=== PATIENT | male | born 1965 | race Caucasian/White ===

== ENCOUNTER 2021-05-01 16:13 | Inpatient (IN) ==
[2021-05-01] MEDS ORDERED: SODIUM CHLORIDE 0.9% 1000ML 1,000 ML IV ONE (16:41)
[2021-05-01] MEDS ORDERED: fentaNYL citrate 100 MCG/2 ML VIAL IV STA (16:42)
--- NOTE | 2021-05-01 16:43 | Emergency Department Note ---
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 Describes a ripping sensation in the middle of his abdomen and some nausea. States he feels quite sweaty. Denies any chest pain or shortness of breath. Denies loss of consciousness or trauma. Patient states he last took his blood thinner this morning. Denies a history of similar pain like this but does report distantly has had kidney stones. EMS provided the patient with some Zofran and fentanyl prior to arrival which has moderated the pain mildly. Patient denies a history of abdominal surgery. Reports in the past has had significant chronic diarrhea of unclear etiology prior work-up outside of [place] where he is from. Denies any bowel movements today. No history of bowel obstructions reported. REVIEW OF SYSTEMS: A total of 10 review of systems was obtained and negative except as stated above in the HPI. PAST MEDICAL HISTORY: As noted above MEDICATIONS: Reviewed home medications with the patient include Xarelto SOCIAL HISTORY: Non-smoker lives outside of [place], states he is single PHYSICAL EXAM: GENERAL: alert and oriented appears significantly uncomfortable lying on the stretcher with his eyes closed grimacing Head: normocephalic and atraumatic EYES: No injection, discharge or icterus. NECK: Trachea midline. Supple. ENT: Mucous membranes pink and moist LUNGS: Airway patent. No retractions. Breath sounds clear with good air entry bilaterally. HEART: Regular rate and rhythm. No chest wall tenderness ABDOMEN: Soft not peritoneal but with mid abdominal pain and tenderness. No flank tenderness appreciated. SKIN: Acyanotic, warm, diaphoretic EXTREMITIES: Without swelling, tenderness or deformity NEUROLOGICAL: No focal deficits. No aphasia. No facial droop or slurred speech. EK bpm normal sinus rhythm. No PVC or PAC. Some inferior ST and T wave changes but no clear acute ST segment elevation noted. No priors available for comparison. CONTINUOUS CARDIAC MONITORING: was ordered and showed a heart rate of 80s to 100s bpm in normal sinus rhythm to sinus tachycardia EKG #2: 104 bpm sinus tachycardia. No PVC or PAC. Some baseline artifact is noted. No acute ST segment elevation noted with persistent inferior T wave inversions Patient's laboratory studies and imaging reviewed. Differential includes Appendicitis, testicular torsion, infections, diverticulitis, UTI, obstruction, mesenteric ischemia, cardiac pathology, aortic pathology, inflammatory bowel disease, renal colic, PUD, pancreatitis, biliary pathology, hernia, volvulus, constipation, as well as other pathologies. IMPRESSION/MEDICAL DECISION MAKING: Patient presents with severe abdominal pain from out of the area on Xarelto. Describes a ripping sensation in the abdomen. Denies shortness of breath or chest pain. EKG question some inferior T wave and ST changes but no clear STEMI. Immediately sent for CT of the abdomen pelvis. Bedside ultrasound of the abdomen was attempted by myself at bedside but overlying bowel gas and habitus prohibited any conclusive aortic visualization. Again immediately taken for a CT of the abdomen pelvis as well as the chest. CT reports per radiology show evidence of no acute aortic pathology. They do find evidence of a nonspecific enteritis in the right lower quadrant with some mesenteric lymph nodes enlarged and a small bowel obstruction. No pneumatosis is noted per the scan. Blood work shows some slight white count of 11.3. Patient in significant discomfort. Given additional pain medicine here. Discussed with him placing an NG tube for help with decompression. Given some IV fluid here recommended further evaluation here at the hospital for care of sm all bowel obstruction. Given the work-up believe hypertension likely secondary to his significant abdominal discomfort. Patient was unable to tolerate initial NG tube placement here. Medicated with Zofran in addition to morphine (patient later states is multiple orthopedic procedures in the past and is quite tolerant to narcotics requesting Dilaudid) and later given Dilaudid. Patient was later able to have an NG tube placed with over a liter of output. Repeat EKG obtained given his continued discomfort and diaphoresis without acute STEMI and again I doubt this is cardiac and his significant discomfort is a symptom of his SBO. Patient was made aware of some reactive lymph nodes and to follow-up with his outpatient GI doctor for further evaluation of the inflammatory and obstructive state after this admission resolves. DIAGNOSIS: Abdominal pain, small bowel obstruction, nausea, hypertension DISPOSITION: Hospitalist will evaluate for further care and the patient was in agreement this plan Past Med/Surg History Social History Smoking Status: Never smoker Feels Safe at Home: Yes Allergies Allergies Allergy/AdvReac Type Severity Reaction Status Date / Time ciprofloxacin [From Cipro] Allergy Severe Anaphylaxis Unverified 05/01/21 18:35 Home Meds Home Medications Medication Instructions Recorded Confirmed acetaminophen [Tylenol Extra 1,000 mg PO Q6H PRN 05/01/21 05/01/21 Strength] atenolol 25 mg PO BID 05/01/21 05/01/21 esomeprazole magnesium [Nexium 20 mg PO QAM 05/01/21 05/01/21 24HR] rivaroxaban [Xarelto] 20 mg PO QAM 05/01/21 05/01/21 Results & Data (ED) Vital Signs Vital Signs - 24 hr 05/01/21 16:25 05/01/21 16:36 05/01/21 17:11 Temperature 36.5 C Temperature Source Oral Pulse Rate 85 83 85 Pulse Rate from SpO2 Sensor 79 84 Pulse Rhythm Regular Pulse Strength Normal Respiratory Rate 12 17 13 Respiratory Effort / Characteristics Non-Labored Spontaneous Respiratory Depth Normal Respiratory Pattern Regular Blood Pressure 168/119 H 168/124 H 183/121 H Blood Pressure [Right Arm] Blood Pressure Mean 135 138 141 Blood Pressure Mean [Right Arm] Blood Pressure Position Sitting Blood Pressure Position [Right Arm] Pulse Oximetry 94 93 95 Oxygen Delivery Method Room Air Sepsis Recent Fever Within 48 Hours No Sepsis New/Unexplained Change in Mental Status No Sepsis Action Taken by Nursing No Action Required 05/01/21 18:23 05/01/21 19:00 05/01/21 19:06 Temperature Temperature Source Pulse Rate 94 H 96 H 105 H Pulse Rate from SpO2 Sensor 94 H 96 H 105 H Pulse Rhythm Pulse Strength Respiratory Rate 19 20 18 Respiratory Effort / Characteristics Respiratory Depth Respiratory Pattern Blood Pressure 169/128 H 167/123 H Blood Pressure [Right Arm] Blood Pressure Mean 141 137 Blood Pressure Mean [Right Arm] Blood Pressure Position Blood Pressure Position [Right Arm] Pulse Oximetry 97 91 94 Oxygen Delivery Method Sepsis Recent Fever Within 48 Hours Sepsis New/Unexplained Change in Mental Status Sepsis Action Taken by Nursing 05/01/21 19:07 05/01/21 19:35 05/01/21 20:00 Temperature Temperature Source Pulse Rate 103 H Pulse Rate from SpO2 Sensor 104 H Pulse Rhythm Pulse Strength Respiratory Rate 22 16 Respiratory Effort / Characteristics Non-Labored Respiratory Depth Normal Respiratory Pattern Blood Pressure Blood Pressure [Right Arm] 167/123 H Blood Pressure Mean Blood Pressure Mean [Right Arm] 137 Blood Pressure Position Blood Pressure Position [Right Arm] Lying Pulse Oximetry 95 92 Oxygen Delivery Method Room Air Room Air Sepsis Recent Fever Within 48 Hours Sepsis New/Unexplained Change in Mental Status Sepsis Action Taken by Nursing 05/01/21 21:00 05/01/21 21:21 Temperature Temperature Source Pulse Rate 104 H 110 H Pulse Rate from SpO2 Sensor 106 H 111 H Pulse Rhythm Pulse Strength Respiratory Rate 23 14 Respiratory Effort / Characteristics Non-Labored Accessory Muscle Use Respiratory Depth Normal Respiratory Pattern Blood Pressure 151/112 H Blood Pressure [Right Arm] 151/112 H Blood Pressure Mean 125 Blood Pressure Mean [Right Arm] 125 Blood Pressure Position Blood Pressure Position [Right Arm] Lying Pulse Oximetry 92 94 Oxygen Delivery Method Room Air Sepsis Recent Fever Within 48 Hours Sepsis New/Unexplained Change in Mental Status Sepsis Action Taken by Nursing Laboratory Data Result diagrams: 05/01/21 16:58 05/01/21 17:37 Lab Results 05/01/21 05/01/21 05/01/21 Range/Units 16:39 16:39 16:58 WBC 11.33 H (4.8-10.8) K/uL RBC 5.92 (4.7-6.1) M/uL Hgb 18.0 (14.0-18.0) g/dL Hct 51.7 (42-52) % MCV 87.3 (80-100) fL MCH 30.4 (25-34) pg MCHC 34.8 (32-36) g/dL RDW Std Deviation 45.1 (36.4-46.3) fL RDW Coeff of Anat 14.1 (11.5-14.5) % Plt Count 188 (130-400) K/uL MPV 12.0 H (7.4-10.4) fL Immature Gran % (Auto) 0.7 % Neut % (Auto) 88.6 % Lymph % (Auto) 5.2 % Douglas % (Auto) 4.9 % Eos % (Auto) 0.4 % Baso % (Auto) 0.2 % Neut # (Auto) 10.04 H (1.4-6.5) K/uL Lymph # (Auto) 0.59 L (1.2-3.4) K/uL Douglas # (Auto) 0.56 (0.11-0.59) K/uL Eos # (Auto) 0.04 (0-0.5) K/uL Baso # (Auto) 0.02 (0-0.2) K/uL Immature Gran # (Auto) 0.08 H (0.00-0.02) K/uL PT 11.6 (9.0-12.0) Seconds INR 1.2 H (0.9-1.1) Sodium Cancelled Potassium Cancelled Chloride Cancelled Carbon Dioxide Cancelled Anion Gap Cancelled BUN Cancelled Creatinine Cancelled Est Cr Clr Drug Dosing Cancelled Est GFR ( Amer) Cancelled Est GFR (Non-Af Amer) Cancelled BUN/Creatinine Ratio Cancelled Glucose Cancelled Calcium Cancelled Total Bilirubin Cancelled AST Cancelled ALT Cancelled Alkaline Phosphatase Cancelled Troponin I Cancelled Total Protein Cancelled Albumin Cancelled Globulin Cancelled Albumin/Globulin Ratio Cancelled Lipase Cancelled COVID-19 Eval Order SARS-CoV-2 (PCR) (Negative) 05/01/21 05/01/21 05/01/21 Range/Units 17:37 19:08 19:08 WBC (4.8-10.8) K/uL RBC (4.7-6.1) M/uL Hgb (14.0-18.0) g/dL Hct (42-52) % MCV (80-100) fL MCH (25-34) pg MCHC (32-36) g/dL RDW Std Deviation (36.4-46.3) fL RDW Coeff of Anat (11.5-14.5) % Plt Count (130-400) K/uL MPV (7.4-10.4) fL Immature Gran % (Auto) % Neut % (Auto) % Lymph % (Auto) % Douglas % (Auto) % Eos % (Auto) % Baso % (Auto) % Neut # (Auto) (1.4-6.5) K/uL Lymph # (Auto) (1.2-3.4) K/uL Douglas # (Auto) (0.11-0.59) K/uL Eos # (Auto) (0-0.5) K/uL Baso # (Auto) (0-0.2) K/uL Immature Gran # (Auto) (0.00-0.02) K/uL PT (9.0-12.0) Seconds INR (0.9-1.1) Sodium 134 L Potassium 4.5 Chloride 102 Carbon Dioxide 28 Anion Gap 4.0 BUN 13 Creatinine 0.94 Est Cr Clr Drug Dosing 108.7 Est GFR ( Amer) 103.9 Est GFR (Non-Af Amer) 89.6 BUN/Creatinine Ratio 13.9 Glucose 166 H Calcium 8.8 Total Bilirubin 0.7 AST 36 ALT 43 Alkaline Phosphatase 89 Troponin I < 0.015 Total Protein 7.7 Albumin 3.6 Globulin 4.1 H Albumin/Globulin Ratio 0.9 Lipase 147 COVID-19 Eval Order Covid19 at [facility] SARS-CoV-2 (PCR) NEGATIVE (Negative) Administered Medications Discontinued Medications Fentanyl Citrate (Fentanyl Citrate 100 Mcg/2 Ml Vial) 100 mcg IV NOW STA Stop: 05/01/21 16:43 Last Admin: 05/01/21 17:09 Dose: 100 mcg Documented by: [id number] Hydromorphone HCl (Hydromorphone Inj 1 Mg/Ml Syringe) 1 mg IV NOW STA Stop: 05/01/21 18:29 Last Admin: 05/01/21 18:42 Dose: 1 mg Documented by: [id number] Hydromorphone HCl (Hydromorphone Inj 1 Mg/Ml Syringe) 1 mg IV NOW STA Stop: 05/01/21 19:14 Last Admin: 05/01/21 19:23 Dose: 1 mg Documented by: [id number] Sodium Chloride (Nss 1000ml) 1,000 mls @ 999 mls/hr IV .Q1H1M ONE Stop: 05/01/21 17:41 Last Infusion: 05/01/21 19:04 Dose: 0 mls/hr Documented by: [id number] Admin: 05/01/21 17:10 Dose: 999 mls/hr Documented by: [id number] Ioversol (Optiray 320 125ml) 120 ml IV ONCE ONE Stop: 05/01/21 16:45 Last Admin: 05/01/21 16:45 Dose: 120 ml Documented by: [id number] Morphine Sulfate (Morphine Sulfate 4 Mg/Ml 1 Ml Carp\Vial) 4 mg IV NOW STA Stop: 05/01/21 17:52 Last Admin: 05/01/21 18:05 Dose: 4 mg Documented by: [id number] Morphine Sulfate (Morphine Sulfate 4 Mg/Ml 1 Ml Carp\Vial) 4 mg IV NOW STA Stop: 05/01/21 18:23 Last Admin: 05/01/21 18:26 Dose: 4 mg Documented by: [id number] Ondansetron HCl (Ondansetron Inj 2 Mg/Ml 2 Ml Vial) 4 mg IV NOW STA Stop: 05/01/21 17:53 Last Admin: 05/01/21 18:06 Dose: 4 mg Documented by: [id number] Imaging Data Radiologist's Impression: Abdomen/Pelvis CTA 05/01/21 16:40 CT ANGIOGRAM OF THE CHEST COMBO; CT ANGIOGRAM OF THE ABDOMEN AND PELVIS CLINICAL HISTORY: Hypertension. Generalized abdominal pain. COMPARISON STUDY: No priors. TECHNIQUE: Unenhanced CT of the chest is obtained. Following the IV admi nistration of 120 cc of Optiray 320, CT angiogram of the chest, abdomen, and pelvis was performed from the thoracic inlet to the proximal femora. Images are reviewed in the axial, sagittal, and coronal planes. 3-D MIPS images are created and assessed. IV contrast was administered without complication. A dose lowering technique was utilized adhering to the principles of ALARA. CT DOSE: 2936.46 mGy.cm FINDINGS: CHEST: Thyroid: Imaged portions of the thyroid gland are normal in size and attenua tion. Low-attenuation thyroid nodules measure up to 12 mm. Thoracic aorta: No intramural hematoma is identified on the unenhanced series. The thoracic aorta is normal in course and caliber. The aortic arch demonstrates standard 3-vessel anatomy. No dissection is seen. The arch vessels are widely patent. Pulmonary vasculature: The pulmonary trunk is dilated measuring 3.7 cm in diameter. This suggests pulmonary artery hypertension. There are no filling defects identified in the central pulmonary vessels to indicate pulmonary embolus. Note that this examination was not protocoled for evaluation of the pulmonary arteries. Heart: The heart is mildly enlarged and without pericardial effusion. The coronary arteries are densely calcified. Lungs and pleural spaces: There is no airspace consolidation or pleural effusion. Dependent atelectasis is noted at the lung bases. The trachea and central airways are clear. There is a 2 mm pulmonary nodule is incidentally noted in the lingula as seen on image #130. Mediastinum: There is no mediastinal lymphadenopathy. Lori: Clear. Axillae: There is no axillary lymphadenopathy. Bony thorax: No destructive bony lesions are identified. A right shoulder arthroplasty is in place. Degenerative change is seen throughout the thoracic spine. ABDOMEN AND PELVIS: Liver: The contrast-enhanced liver is mildly enlarged, measuring 23.3 cm in length. The liver demonstrates diffusely diminished attenuation consistent with hepatic steatosis. There is no intrahepatic biliary ductal dilatation. The main portal veins appear patent. Gallbladder: Surgically absent noting clips in the gallbladder fossa. Spleen: The spleen is enlarged measuring 16.2 cm in length. The spleen is otherwise normal in appearance noting heterogeneous arterial phase enhancement. Pancreas: Unremarkable. Adrenal glands: Unremarkable. Kidneys: The contrast enhanced kidneys are normal in size and without hydronephrosis. The kidneys enhance symmetrically. A 1.6 cm cyst is noted on the right. Abdominal aorta and iliac arteries: The abdominal aorta is normal in course and caliber noting minimal atherosclerotic plaque. No dissection is seen. The abdominal aorta and iliac arteries are widely patent bilaterally. Major branches of the abdominal aorta: The celiac trunk, superior mesenteric, and inferior mesenteric arteries are widely patent. There is a replaced hepatic artery which arises from the superior mesenteric artery. The splenic vein is patent. There are 2 renal arteries seen bilaterally. These are widely patent. Stomach and bowel: There is mild colonic diverticulosis without CT evidence of acute diverticulitis. Duodenal diverticula are incidentally noted. There is a thick-walled and hyperemic loop of distal ileum in the right lower quadrant seen on image #304. The small bowel loops proximal to this loop are distended and fluid-filled, measuring up to 3.1 cm diameter. This is consistent with a small bowel obstruction. The distal small bowel and colon are decompressed. The transition point is seen on image #314. Interloop fluid is noted. There is no pneumatosis intestinalis or portal venous gas. The appendix is well-visualized and normal. Peritoneum: There is trace pelvic ascites. No intraperitoneal free air is identified. Lymphadenopathy: There are mildly enlarged and hyperemic mesenteric lymph nodes in the right lower quadrant. The largest is seen on image #308 and measures 2.2 x 2.0 cm. Pelvic viscera: The bladder, prostate, and seminal vesicles are normal as imaged. Skeletal structures: There are bilateral pars defects at L5. Mild to moderate lumbosacral spondylosis is observed. A large hemangioma seen in the body of L5. No destructive bony lesions are seen. IMPRESSION: 1. Unremarkable CT angiogram of the thoracic aorta. 2. There is no airspace consolidation or pleural effusion. 3. Mild cardiomegaly with advanced coronary artery calcification. 4. Unremarkable CT angiogram of the abdominal aorta and its major branches. 5. There is a focally thick walled and hyperemic loop of distal ileum the right lower quadrant. This likely represents a nonspecific enteritis. A stricture or mass lesion are differential considerations. 6. This thick-walled loop causes upstream small bowel obstruction. 7. Interloop fluid is noted. No pneumatosis intestinalis, portal venous gas, or intraperitoneal free air is identified. 8. There are enlarged and hyperemic mesenteric lymph nodes in the right lower quadrant. These may be reactive but are larger than expected. A 2-3 month follow-up abdominal CT is recommended for reassessment. 9. Hepatomegaly and hepatic steatosis. 10. Splenomegaly. 11. Colonic diverticulosis without CT evidence of acute diverticulitis. 12. Additional findings as above. ACT 112: Positive. There are findings on this exam that require communication between the performing entity and the patient following Patient Test Result Information Act ([place] Act 112) guidelines. Electronically signed by: Roberto Mata M.D. 05/01/2021 5:15 PM Chest CTA 05/01/21 16:40 CT ANGIOGRAM OF THE CHEST COMBO; CT ANGIOGRAM OF THE ABDOMEN AND PELVIS CLINICAL HISTORY: Hypertension. Generalized abdominal pain. COMPARISON STUDY: No priors. TECHNIQUE: Unenhanced CT of the chest is obtained. Following the IV administration of 120 cc of Optiray 320, CT angiogram of the chest, abdomen, and pelvis was performed from the thoracic inlet to the proximal femora. Images are reviewed in the axial, sagittal, and coronal planes. 3-D MIPS images are created and assessed. IV contrast was administered without complication. A dose lowering technique was utilized adhering to the principles of ALARA. CT DOSE: 2936.46 mGy.cm FINDINGS: CHEST: Thyroid: Imaged portions of the thyroid gland are normal in size and attenuation. Low-attenuation thyroid nodules measure up to 12 mm. Thoracic aorta: No intramural hematoma is identified on the unenhanced series. The thoracic aorta is normal in course and caliber. The aortic arch demonstrates standard 3-vessel anatomy. No dissection is seen. The arch vessels are widely patent. Pulmonary vasculature: The pulmonary trunk is dilated measuring 3.7 cm in diameter. This suggests pulmonary artery hypertension. There are no filling defects identified in the central pulmonary vessels to indicate pulmonary embolus. Note that this examination was not protocoled for evaluation of the pulmonary arteries. Heart: The heart is mildly enlarged and without pericardial effusion. The coronary arteries are densely calcified. Lungs and pleural spaces: There is no airspace consolidation or pleural effusion. Dependent atelectasis is noted at the lung bases. The trachea and central airways are clear. There is a 2 mm pulmonary nodule is incidentally noted in the lingula as seen on image #130. Mediastinum: There is no mediastinal lymphadenopathy. Lori: Clear. Axillae: There is no axillary lymphadenopathy. Bony thorax: No destructive bony lesions are identified. A right shoulder arthroplasty is in place. Degenerative change is seen throughout the thoracic spine. ABDOMEN AND PELVIS: Liver: The contrast-enhanced liver is mildly enlarged, measuring 23.3 cm in length. The liver demonstrates diffusely diminished attenuation consistent with hepatic steatosis. There is no intrahepatic biliary ductal dilatation. The main portal veins appear patent. Gallbladder: Surgically absent noting clips in the gallbladder fossa. Spleen: The spleen is enlarged measuring 16.2 cm in length. The spleen is otherwise normal in appearance noting heterogeneous arterial phase enhancement. Pancreas: Unremarkable. Adrenal glands: Unremarkable. Kidneys: The contrast enhanced kidneys are normal in size and without hydronephrosis. The kidneys enhance symmetrically. A 1.6 cm cyst is noted on the right. Abdominal aorta and iliac arteries: The abdominal aorta is normal in course and caliber noting minimal atherosclerotic plaque. No dissection is seen. The abdominal aorta and iliac arteries are widely patent bilaterally. Major branches of the abdominal aorta: The celiac trunk, superior mesenteric, a nd inferior mesenteric arteries are widely patent. There is a replaced hepatic artery which arises from the superior mesenteric artery. The splenic vein is patent. There are 2 renal arteries seen bilaterally. These are widely patent. Stomach and bowel: There is mild colonic diverticulosis without CT evidence of acute diverticulitis. Duodenal diverticula are incidentally noted. There is a thick-walled and hyperemic loop of distal ileum in the right lower quadrant seen on image #304. The small bowel loops proximal to this loop are distended and fluid-filled, measuring up to 3.1 cm diameter. This is consistent with a small bowel obstruction. The distal small bowel and colon are decompressed. The transition point is seen on image #314. Interloop fluid is noted. There is no pneumatosis intestinalis or portal venous gas. The appendix is well-visualized and normal. Peritoneum: There is trace pelvic ascites. No intraperitoneal free air is id entified. Lymphadenopathy: There are mildly enlarged and hyperemic mesenteric lymph nodes in the right lower quadrant. The largest is seen on image #308 and measures 2.2 x 2.0 cm. Pelvic viscera: The bladder, prostate, and seminal vesicles are normal as imaged. Skeletal structures: There are bilateral pars defects at L5. Mild to moderate lumbosacral spondylosis is observed. A large hemangioma seen in the body of L5. No destructive bony lesions are seen. IMPRESSION: 1. Unremarkable CT angiogram of the thoracic aorta. 2. There is no airspace consolidation or pleural effusion. 3. Mild cardiomegaly with advanced coronary artery calcification. 4. Unremarkable CT angiogram of the abdominal aorta and its major branches. 5. There is a focally thick walled and hyperemic loop of distal ileum the right lower quadrant. This likely represents a nonspecific enteritis. A stricture or mass lesion are differential considerations. 6. This thick-walled loop causes upstream small bowel obstruction. 7. Interloop fluid is noted. No pneumatosis intestinalis, portal venous gas, or intraperitoneal free air is identified. 8. There are enlarged and hyperemic mesenteric lymph nodes in the right lower quadrant. These may be reactive but are larger than expected. A 2-3 month follow-up abdominal CT is recommended for reassessment. 9. Hepatomegaly and hepatic steatosis. 10. Splenomegaly. 11. Colonic diverticulosis without CT evidence of acute diverticulitis. 12. Additional findings as above. ACT 112: Positive. There are findings on this exam that require communication between the performing entity and the patient following Patient Test Result Information Act ([place] Act 112) guidelines. Electronically signed by: Roberto Mata M.D. 05/01/2021 5:15 PM Discharge Plan Visit Data Chief Complaint: Abdominal Pain Stated Complaint: Abd pain ED Provider: Cyrus Petty Discharge Problem: Abdominal pain, Small bowel obstruction, Nausea, HTN (hypertension) Patient Disposition: Being Evaluated by Hospitalist Forms Stand Alone Forms: [facility] [employer] Prescriptions Prescriptions: No Action atenolol 25 mg tablet 25 mg PO BID RF: 0 Nexium 24HR 20 mg Tablet,Delayed Release (Dr/Ec) 20 mg PO QAM RF: 0 Xarelto 20 mg tablet 20 mg PO QAM RF: 0 acetaminophen [Tylenol Extra Strength] 500 mg Tablet 1,000 mg PO Q6H PRN (Reason: Pain) RF: 0 Referrals Referrals: PCP,NO [Primary Care Provider] - Discharge Problem: Abdominal pain Qualifiers: Abdominal location: generalized Qualified Code(s): R10.84 - Generalized abdominal pain HTN (hypertension) Qualifiers: Hypertension type: unspecified Qualified Code(s): I10 - Essential (primary) hypertension
[2021-05-01] MEDS ORDERED: OPTIRAY 320 125ml IV ONE (16:44)
[2021-05-01 16:58] LABS: INR 1.2 (0.9-1.1); Prothrombin Time 11.6 Seconds (9.0-12.0)
[2021-05-01 17:11] LABS: Basophils # (auto) 0.02 K/uL (0-0.2); Basophils % (auto) 0.2 %; Eosinophils # (auto) 0.04 K/uL (0-0.5); Eosinophils % (auto) 0.4 %; Hematocrit (blood only) 51.7 % (42-52); Immature Granulocytes # (auto) 0.08 K/uL (0.00-0.02); Immature Granulocytes % (auto) 0.7 %; Lymphocytes # (auto) 0.59 K/uL (1.2-3.4); Lymphocytes % (auto) 5.2 %; Mean Corpuscular Hemoglobin 30.4 pg (25-34); Mean Corpuscular Hgb Conc 34.8 g/dL (32-36); Mean Corpuscular Volume 87.3 fL (80-100); Monocytes # (auto) 0.56 K/uL (0.11-0.59); Monocytes % (auto) 4.9 %; Neutrophils # (auto) 10.04 K/uL (1.4-6.5); Neutrophils % (auto) 88.6 %; Platelet Count 188 K/uL (130-400); RDW Coefficient of Variation 14.1 % (11.5-14.5); RDW Standard Deviation 45.1 fL (36.4-46.3); Red Blood Count 5.92 M/uL (4.7-6.1); White Blood Count 11.33 K/uL (4.8-10.8)
--- NOTE | 2021-05-01 17:16 | CT Scan Report ---
CT ANGIOGRAM OF THE CHEST COMBO; CT ANGIOGRAM OF THE ABDOMEN AND PELVIS CLINICAL HISTORY: Hypertension. Generalized abdominal pain. COMPARISON STUDY: No priors. TECHNIQUE: Unenhanced CT of the chest is obtained. Following the IV administration of 120 cc of Optir ay 320, CT angiogram of the chest, abdomen, and pelvis was performed from the thoracic inlet to the p roximal femora. Images are reviewed in the axial, sagittal, and coronal planes. 3-D MIPS images are c reated and assessed. IV contrast was administered without complication. A dose lowering technique was utilized adhering to the principles of ALARA. CT DOSE: 2936.46 mGy.cm FINDINGS: CHEST: Thyroid: Imaged portions of the thyroid gland are normal in size and attenuation. Low-attenuation thy roid nodules measure up to 12 mm. Thoracic aorta: No intramural hematoma is identified on the unenhanced series. The thoracic aorta is normal in course and caliber. The aortic arch demonstrates standard 3-vessel anatomy. No dissection i s seen. The arch vessels are widely patent. Pulmonary vasculature: The pulmonary trunk is dilated measuring 3.7 cm in diameter. This suggests pul monary artery hypertension. There are no filling defects identified in the central pulmonary vessels to indicate pulmonary embolus. Note that this examination was not protocoled for evaluation of the pu lmonary arteries. Heart: The heart is mildly enlarged and without pericardial effusion. The coronary arteries are dense ly calcified. Lungs and pleural spaces: There is no airspace consolidation or pleural effusion. Dependent atelectas is is noted at the lung bases. The trachea and central airways are clear. There is a 2 mm pulmonary n odule is incidentally noted in the lingula as seen on image #130. Mediastinum: There is no mediastinal lymphadenopathy. Lori: Clear. Axillae: There is no axillary lymphadenopathy. Bony thorax: No destructive bony lesions are identified. A right shoulder arthroplasty is in place. D egenerative change is seen throughout the thoracic spine. ABDOMEN AND PELVIS: Liver: The contrast-enhanced liver is mildly enlarged, measuring 23.3 cm in length. The liver demonst rates diffusely diminished attenuation consistent with hepatic steatosis. There is no intrahepatic bi liary ductal dilatation. The main portal veins appear patent. Gallbladder: Surgically absent noting clips in the gallbladder fossa. Spleen: The spleen is enlarged measuring 16.2 cm in length. The spleen is otherwise normal in appeara nce noting heterogeneous arterial phase enhancement. Pancreas: Unremarkable. Adrenal glands: Unremarkable. Kidneys: The contrast enhanced kidneys are normal in size and without hydronephrosis. The kidneys enh ance symmetrically. A 1.6 cm cyst is noted on the right. Abdominal aorta and iliac arteries: The abdominal aorta is normal in course and caliber noting minima l atherosclerotic plaque. No dissection is seen. The abdominal aorta and iliac arteries are widely pa tent bilaterally. Major branches of the abdominal aorta: The celiac trunk, superior mesenteric, and inferior mesenteric arteries are widely patent. There is a replaced hepatic artery which arises from the superior mesent brett artery. The splenic vein is patent. There are 2 renal arteries seen bilaterally. These are widel y patent. Stomach and bowel: There is mild colonic diverticulosis without CT evidence of acute diverticulitis. Duodenal diverticula are incidentally noted. There is a thick-walled and hyperemic loop of distal ile um in the right lower quadrant seen on image #304. The small bowel loops proximal to this loop are di stended and fluid-filled, measuring up to 3.1 cm diameter. This is consistent with a small bowel obst ruction. The distal small bowel and colon are decompressed. The transition point is seen on image #31 4. Interloop fluid is noted. There is no pneumatosis intestinalis or portal venous gas. The appendix is well-visualized and normal. Peritoneum: There is trace pelvic ascites. No intraperitoneal free air is identified. Lymphadenopathy: There are mildly enlarged and hyperemic mesenteric lymph nodes in the right lower qu adrant. The largest is seen on image #308 and measures 2.2 x 2.0 cm. Pelvic viscera: The bladder, prostate, and seminal vesicles are normal as imaged. Skeletal structures: There are bilateral pars defects at L5. Mild to moderate lumbosacral spondylosis is observed. A large hemangioma seen in the body of L5. No destructive bony lesions are seen. IMPRESSION: 1. Unremarkable CT angiogram of the thoracic aorta. 2. There is no airspace consolidation or pleural effusion. 3. Mild cardiomegaly with advanced coronary artery calcification. 4. Unremarkable CT angiogram of the abdominal aorta and its major branches. 5. There is a focally thick walled and hyperemic loop of distal ileum the right lower quadrant. This likely represents a nonspecific enteritis. A stricture or mass lesion are differential considerations . 6. This thick-walled loop causes upstream small bowel obstruction. 7. Interloop fluid is noted. No pneumatosis intestinalis, portal venous gas, or intraperitoneal free air is identified. 8. There are enlarged and hyperemic mesenteric lymph nodes in the right lower quadrant. These may be reactive but are larger than expected. A 2-3 month follow-up abdominal CT is recommended for reassess ment. 9. Hepatomegaly and hepatic steatosis. 10. Splenomegaly. 11. Colonic diverticulosis without CT evidence of acute diverticulitis. 12. Additional findings as above. ACT 112: Positive. There are findings on this exam that require communication between the performing entity and the patient following Patient Test Result Information Act ([place] Act 112) guidelines. Electronically signed by: Brett Mata M.D. 05/01/2021 5:15 PM
[2021-05-01] MEDS ORDERED: MoRPHine SULFATE 4 MG/ML 1 ML CARP\\VIAL IV STA ×2 (17:51→18:22)
[2021-05-01] MEDS ORDERED: ONDANSETRON INJ 2 MG/ML 2 ML VIAL IV STA (17:52)
[2021-05-01 18:04] LABS: Alanine Aminotransferase 43 U/L (12-78); Albumin Level 3.6 gm/dl (3.4-5.0); Aspartate Aminotransferase 36 U/L (15-37); BUN Creatinine Ratio 13.9 (10-20); Blood Urea Nitrogen 13 mg/dl (7-18); Calcium 8.8 mg/dl (8.5-10.1); Carbon Dioxide 28 mmol/L (21-32); Chloride 102 mmol/L (98-107); Creatinine Clr Calc Pharmacy 108.7 ml/min; Est GFR (African American) 103.9 ml/min; Est GFR (Non-African American) 89.6 ml/min; Glucose 166 mg/dl (70-99); Lipase 147 U/L (73-393); Potassium 4.5 mmol/L (3.5-5.1); Sodium 134 mmol/L (136-145)
[2021-05-01 18:09] LABS: Albumin Globulin Ratio 0.9 (0.9-2); Alkaline Phosphatase 89 U/L (45-117); Bilirubin,Total 0.7 mg/dl (0.2-1); Globulin 4.1 gm/dl (2.5-4.0); Total Protein 7.7 gm/dl (6.4-8.2); Troponin I < 0.015 ng/ml (0-0.045)
[2021-05-01] MEDS ORDERED: HYDROmorphone INJ 1 MG/ML SYRINGE IV STA ×2 (18:28→19:13)
[2021-05-01] MEDS ORDERED: Heparin IV Adult Wt-Based Low-Dose *NO* Bolus Protocol IV SCH (21:00)
[2021-05-01] MEDS: HEPARIN SODIUM/DEXTROSE 25,000 UNITS/500 ML BAG IV SCH (22:04)
[2021-05-01 22:06] LABS: Appearance Urine Clear (Clear); Bacteria Urine Automated Negative (Negative); Blood Urine Negative (Negative); Color Urine Dark Yellow; Glucose Urine UA Negative (Negative); Ketones Urine Trace (Negative); Leukocyte Esterase Urine Negative (Negative); Nitrite Urine Negative (Negative); Protein Urine 3+ (Negative); Specific Gravity Urine > 1.045 (1.000-1.030); Urobilinogen Urine Negative (Negative)
[2021-05-01 22:06] LABS: Partial Thromboplastin Ratio 1.4; Partial Thromboplastin Time 36.7 Seconds (21.0-31.0)
[2021-05-01] MEDS ORDERED: ONDANSETRON INJ 2 MG/ML 2 ML VIAL IV PRN (22:17)
[2021-05-01] MEDS ORDERED: PIPERACILL/TAZOBAC CONSULT ACTIVE PRN (22:17)
[2021-05-01] MEDS ORDERED: HYDROmorphone INJ 1 MG/ML SYRINGE IV PRN (22:17)
[2021-05-01] MEDS ORDERED: PIPERACILLIN/TAZOBACTAM 4.5 GM in DEXTROSE 5% 100 ML IV SCH (22:17)
[2021-05-01 22:20] LABS: Bilirubin Urine 1+ (Negative)
[2021-05-01] MEDS ORDERED: PIPERACILLIN/TAZOBACTAM 4.5 GM in DEXTROSE 5% 100 ML IV ONE (23:00)
--- NOTE | 2021-05-01 23:30 | History & Physical Report ---
Date of Service May 01, 2021 Assessment & Plan (1) Small bowel obstruction: Small bowel obstruction, likely secondary to focally thick-walled and hyperemic loop of distal ileum in the right lower quadrant, likely representing a nonspecific enteritis. Consideration for a stricture or mass lesion was also advised NPO NSS + KCl 20 mEq 100 mils per hour Zofran 4 mg IV every 6 hours as needed Zosyn 4.5 g IV every 8 hours Famotidine 20 mg IV every 12 hours Dilaudid 0.5 mg IV every 3 hours as needed moderate pain Dilaudid 1 mg IV every 3 hours as needed severe pain Continue NG tube to low intermittent suction Present on Admission?: Yes (2) Enteritis: See above Present on Admission?: Yes (3) Lymphadenopathy, abdominal: Enlarged and hyperemic mesenteric lymph nodes in the right lower quadrant that were likely reactive, but possibly larger than expected, and advice from radiology was to repeat CT in 2 to 3 months Present on Admission?: Yes (4) GERD (gastroesophageal reflux disease): Change Nexium 20 mg p.o. 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 Present on Admission?: Yes (10) Chronic anticoagulation: See above Present on Admission?: Yes Admission and Anticipated Discharge Date Admission Date: May 01, 2021 History of Present Illness Chief Complaint: The patient presents to the emergency department with complaint of right-sided abdominal pain, that initially began last evening, was somewhat tolerable overnight, but has worsened considerably during the day today, in particular over the last 3 hours prior to arrival Primary Care Provider: NO PCP The patient is a 55-year-old male with a past medical history including right lower extremity DVT on Xarelto, hypertension, GERD and obesity. He presents with symptoms as noted above. His only previous surgery was a laparoscopic cholecystectomy. Work-up in the emergency department included a CT angiography of chest, abdomen and pelvis which was significant for a small bowel obstruction associated with enteritis causing focally thick-walled and hyperemic loop of distal ileum in the right lower quadrant. There were also enlarged and hyperemic mesenteric lymph nodes in the right lower quadrant, which were larger than expected, and follow- up CT in 2 to 3 months was advised. Hepatomegaly, hepatic steatosis and splenomegaly were noted. Colonic diverticulosis without diverticulitis was noted. NG tube to low intermittent suction was placed in the ED, with free removal of approximately 2 L of fluid. Allergies Allergy/AdvReac Type Severity Reaction Status Date / Time ciprofloxacin [From Cipro] Allergy Severe Anaphylaxis Unverified 05/01/21 18:35 Home Medications Medication Instructions Recorded Confirmed Type acetaminophen [Tylenol Extra 1,000 mg PO Q6H PRN 05/01/21 05/01/21 History Strength] atenolol 25 mg PO BID 05/01/21 05/01/21 History esomeprazole magnesium [Nexium 20 mg PO QAM 05/01/21 05/01/21 History 24HR] rivaroxaban [Xarelto] 20 mg PO QAM 05/01/21 05/01/21 History Past Med/Surg History Medical History (Updated 05/02/21 @ 04:08 by Carlitos Abernathy MD) Chronic anticoagulation GERD (gastroesophageal reflux disease) History of DVT of lower extremity HTN (hypertension) Social History Smoking Status: Never smoker Hx Alcohol Use: No Hx Substance Use: No Preferred Language: Lao Communication Ability: Effective Beliefs That Will Affect Care: None Current Living Situation: Alone Current Living Situation Comment: home Feels Safe at Home: Yes Assistive Devices: Glasses Review of Systems Review of Systems: The patient denies chest pain, palpitations, shortness of breath, dyspnea on exertion, cough, lower extremity swelling, sore throat, blood in urine or stool, dysuria, urinary frequency or urgency, lightheadedness, dizziness, headache, memory loss, loss of consciousness, rash, abnormal bruising or bleeding, imbalance, focal or generalized weakness, numbness or tingling in arms or legs, generalized arthralgias or myalgias, back or neck pain, or night sweats. The review of systems is otherwise negative other than for that already noted above, and at least 10 systems have been reviewed. Physical Exam Physical Exam: The patient is awake, alert and oriented 3, is diaphoretic, lying in bed and otherwise in no acute distress. HEENT--PERRL, EOMI, mucous membranes and oropharynx dry. Neck--supple. No JVD. No bruits. Thyroid normal, trachea midline, no adenopathy. Heart--normal S1 and S2. No murmurs, rubs or gallops. Lungs--clear bilaterally, no respiratory distress, no accessory muscle use. Abdomen--decreased bowel sounds. Mildly distended and firm. Moderate generalized tenderness Extremities--no cyanosis or clubbing. No edema. Dermatologic--normal skin turgor, normal color, no abnormal lymph nodes, no rash. Neurologic--cranial nerves II through XII grossly intact. Rheumatologic--limited exam due to abdominal discomfort Psychiatric--normal affect. Results & Data Results & Data ([facility]) Vital Signs (Past 12 Hours) Vital Signs Temp Pulse Pulse Resp BP BP Pulse Ox 05/01/21 22:57 97.7 F 107 H 16 136/92 93 05/01/21 21:21 110 H 14 151/112 H 94 05/01/21 21:00 104 H 23 151/112 H 92 05/01/21 20:00 103 H 16 92 05/01/21 19:07 22 167/123 H 95 05/01/21 19:06 105 H 18 167/123 H 94 05/01/21 19:00 96 H 20 91 05/01/21 18:23 94 H 19 169/128 H 97 05/01/21 17:11 85 13 183/121 H 95 05/01/21 16:36 83 17 168/124 H 93 05/01/21 16:25 97.7 F 85 12 168/119 H 94 Laboratory Results Laboratory Results WBC 11.33 K/uL (4.8-10.8) H 05/01/21 16:58 RBC 5.92 M/uL (4.7-6.1) 05/01/21 16:58 Hgb 18.0 g/dL (14.0-18.0) 05/01/21 16:58 Hct 51.7 % (42-52) 05/01/21 16:58 MCV 87.3 fL (80-100) 05/01/21 16:58 MCH 30.4 pg (25-34) 05/01/21 16:58 MCHC 34.8 g/dL (32-36) 05/01/21 16:58 RDW Std Deviation 45.1 fL (36.4-46.3) 05/01/21 16:58 RDW Coeff of Anat 14.1 % (11.5-14.5) 05/01/21 16:58 Plt Count 188 K/uL (130-400) 05/01/21 16:58 MPV 12.0 fL (7.4-10.4) H 05/01/21 16:58 Immature Gran % (Auto) 0.7 % 05/01/21 16:58 Neut % (Auto) 88.6 % 05/01/21 16:58 Lymph % (Auto) 5.2 % 05/01/21 16:58 [place] % (Auto) 4.9 % 05/01/21 16:58 Eos % (Auto) 0.4 % 05/01/21 16:58 Baso % (Auto) 0.2 % 05/01/21 16:58 Neut # (Auto) 10.04 K/uL (1.4-6.5) H 05/01/21 16:58 Lymph # (Auto) 0.59 K/uL (1.2-3.4) L 05/01/21 16:58 [place] # (Auto) 0.56 K/uL (0.11-0.59) 05/01/21 16:58 Eos # (Auto) 0.04 K/uL (0-0.5) 05/01/21 16:58 Baso # (Auto) 0.02 K/uL (0-0.2) 05/01/21 16:58 Immature Gran # (Auto) 0.08 K/uL (0.00-0.02) H 05/01/21 16:58 PT 11.6 Seconds (9.0-12.0) 05/01/21 16:39 INR 1.2 (0.9-1.1) H 05/01/21 16:39 APTT 36.7 Seconds (21.0-31.0) H 05/01/21 16:39 PTT Ratio 1.4 05/01/21 16:39 Sodium 134 mmol/L (136-145) L 05/01/21 17:37 Potassium 4.5 mmol/L (3.5-5.1) 05/01/21 17:37 Chloride 102 mmol/L (98-107) 05/01/21 17:37 Carbon Dioxide 28 mmol/L (21-32) 05/01/21 17:37 Anion Gap 4.0 (3-11) 05/01/21 17:37 BUN 13 mg/dl (7-18) 05/01/21 17:37 Creatinine 0.94 mg/dl (0.6-1.4) 05/01/21 17:37 Est Cr Clr Drug Dosing 108.7 ml/min 05/01/21 17:37 Est GFR ( Amer) 103.9 ml/min 05/01/21 17:37 Est GFR (Non-Af Amer) 89.6 ml/min 05/01/21 17:37 BUN/Creatinine Ratio 13.9 (10-20) 05/01/21 17:37 Glucose 166 mg/dl (70-99) H 05/01/21 17:37 Calcium 8.8 mg/dl (8.5-10.1) 05/01/21 17:37 Total Bilirubin 0.7 mg/dl (0.2-1) 05/01/21 17:37 AST 36 U/L (15-37) 05/01/21 17:37 ALT 43 U/L (12-78) 05/01/21 17:37 Alkaline Phosphatase 89 U/L (45-117) 05/01/21 17:37 Troponin I < 0.015 ng/ml (0-0.045) 05/01/21 17:37 Total Protein 7.7 gm/dl (6.4-8.2) 05/01/21 17:37 Albumin 3.6 gm/dl (3.4-5.0) 05/01/21 17:37 Globulin 4.1 gm/dl (2.5-4.0) H 05/01/21 17:37 Albumin/Globulin Ratio 0.9 (0.9-2) 05/01/21 17:37 Lipase 147 U/L (73-393) 05/01/21 17:37 Urine Color Dark Yellow 05/01/21 21:56 Urine Appearance Clear (Clear) 05/01/21 21:56 Urine pH 5.0 (4.5-7.5) 05/01/21 21:56 Ur Specific [place] > 1.045 (1.000-1.030) H 05/01/21 21:56 Urine Protein 3+ (Negative) H 05/01/21 21:56 Urine Glucose (UA) Negative (Negative) 05/01/21 21:56 Urine Ketones Trace (Negative) H 05/01/21 21:56 Urine Blood Negative (Negative) 05/01/21 21:56 Urine Nitrite Negative (Negative) 05/01/21 21:56 Urine Bilirubin 1+ (Negative) H 05/01/21 21:56 Urine Urobilinogen Negative (Negative) 05/01/21 21:56 Ur Leukocyte Esterase Negative (Negative) 05/01/21 21:56 Urine WBC (Auto) 1-5 /hpf (0-5) 05/01/21 21:56 Urine RBC (Auto) 5-10 /hpf (0-4) H 05/01/21 21:56 U Hyaline Cast (Auto) 1-5 /lpf (0-5) 05/01/21 21:56 U Epithel Cells (Auto) 5-10 /lpf (0-5) H 05/01/21 21:56 Urine Bacteria (Auto) Negative (Negative) 05/01/21 21:56 COVID-19 Eval Order Covid19 at [facility] 05/01/21 19:08 SARS-CoV-2 (PCR) NEGATIVE (Negative) 05/01/21 19:08 Impressions Abdomen/Pelvis CTA 05/01/21 16:40 CT ANGIOGRAM OF THE CHEST COMBO; CT ANGIOGRAM OF THE ABDOMEN AND PELVIS CLINICAL HISTORY: Hypertension. Generalized abdominal pain. COMPARISON STUDY: No priors. TECHNIQUE: Unenhanced CT of the chest is obtained. Following the IV administration of 120 cc of Optiray 320, CT angiogram of the chest, abdomen, and pelvis was performed from the thoracic inlet to the proximal femora. Images are reviewed in the axial, sagittal, and coronal planes. 3-D MIPS images are creat ed and assessed. IV contrast was administered without complication. A dose lowering technique was utilized adhering to the principles of ALARA. CT DOSE: 2936.46 mGy.cm FINDINGS: CHEST: Thyroid: Imaged portions of the thyroid gland are normal in size and attenuation. Low-attenuation thyroid nodules measure up to 12 mm. Thoracic aorta: No intramural hematoma is identified on the unenhanced series. The thoracic aorta is normal in course and caliber. The aortic arch demonstrates standard 3-vessel anatomy. No dissection is seen. The arch vessels are widely patent. Pulmonary vasculature: The pulmonary trunk is dilated measuring 3.7 cm in diameter. This suggests pulmonary artery hypertension. There are no filling defects identified in the central pulmonary vessels to indicate pulmonary embolus. Note that this examination was not protocoled for evaluation of the pulmonary arteries. Heart: The heart is mildly enlarged and without pericardial effusion. The coronary arteries are densely calcified. Lungs and pleural spaces: There is no airspace consolidation or pleural effusion. Dependent atelectasis is noted at the lung bases. The trachea and central airways are clear. There is a 2 mm pulmonary nodule is incidentally noted in the lingula as seen on image #130. Mediastinum: There is no mediastinal lymphadenopathy. Lori: Clear. Axillae: There is no axillary lymphadenopathy. Bony thorax: No destructive bony lesions are identified. A right shoulder arthroplasty is in place. Degenerative change is seen throughout the thoracic spine. ABDOMEN AND PELVIS: Liver: The contrast-enhanced liver is mildly enlarged, measuring 23.3 cm in length. The liver demonstrates diffusely diminished attenuation consistent with hepatic steatosis. There is no intrahepatic biliary ductal dilatation. The main portal veins appear patent. Gallbladder: Surgically absent noting clips in the gallbladder fossa. Spleen: The spleen is enlarged measuring 16.2 cm in length. The spleen is otherwise normal in appearance noting heterogeneous arterial phase enhancement. Pancreas: Unremarkable. Adrenal glands: Unremarkable. Kidneys: The contrast enhanced kidneys are normal in size and without hydronephrosis. The kidneys enhance symmetrically. A 1.6 cm cyst is noted on the right. Abdominal aorta and iliac arteries: The abdominal aorta is normal in course and caliber noting minimal atherosclerotic plaque. No dissection is seen. The abdominal aorta and iliac arteries are widely patent bilaterally. Major branches of the abdominal aorta: The celiac trunk, superior mesenteric, and inferior mesenteric arteries are widely patent. There is a replaced hepatic artery which arises from the superior mesenteric artery. The splenic vein is patent. There are 2 renal arteries seen bilaterally. These are widely patent. Stomach and bowel: There is mild colonic diverticulosis without CT evidence of acute diverticulitis. Duodenal diverticula are incidentally noted. There is a t hick-walled and hyperemic loop of distal ileum in the right lower quadrant seen on image #304. The small bowel loops proximal to this loop are distended and fluid-filled, measuring up to 3.1 cm diameter. This is consistent with a small bowel obstruction. The distal small bowel and colon are decompressed. The transition point is seen on image #314. Interloop fluid is noted. There is no pneumatosis intestinalis or portal venous gas. The appendix is well-visualized and normal. Peritoneum: There is trace pelvic ascites. No intraperitoneal free air is identified. Lymphadenopathy: There are mildly enlarged and hyperemic mesenteric lymph nodes in the right lower quadrant. The largest is seen on image #308 and measures 2.2 x 2.0 cm. Pelvic viscera: The bladder, prostate, and seminal vesicles are normal as imaged. Skeletal structures: There are bilateral pars defects at L5. Mild to moderate lumbosacral spondylosis is observed. A large hemangioma seen in the body of L5. No destructive bony lesions are seen. IMPRESSION: 1. Unremarkable CT angiogram of the thoracic aorta. 2. There is no airspace consolidation or pleural effusion. 3. Mild cardiomegaly with advanced coronary artery calcification. 4. Unremarkable CT angiogram of the abdominal aorta and its major branches. 5. There is a focally thick walled and hyperemic loop of distal ileum the right lower quadrant. This likely represents a nonspecific enteritis. A stricture or mass lesion are differential considerations. 6. This thick-walled loop causes upstream small bowel obstruction. 7. Interloop fluid is noted. No pneumatosis intestinalis, portal venous gas, or intraperitoneal free air is identified. 8. There are enlarged and hyperemic mesenteric lymph nodes in the right lower quadrant. These may be reactive but are larger than expected. A 2-3 month follow-up abdominal CT is recommended for reassessment. 9. Hepatomegaly and hepatic steatosis. 10. Splenomegaly. 11. Colonic diverticulosis without CT evidence of acute diverticulitis. 12. Additional findings as above. ACT 112: Positive. There are findings on this exam that require communication between the performing entity and the patient following Patient Test Result Information Act ([place] Act 112) guidelines. Electronically signed by: Roberto Mata M.D. 05/01/2021 5:15 PM Chest CTA 05/01/21 16:40 CT ANGIOGRAM OF THE CHEST COMBO; CT ANGIOGRAM OF THE ABDOMEN AND PELVIS CLINICAL HISTORY: Hypertension. Generalized abdominal pain. COMPARISON STUDY: No priors. TECHNIQUE: Unenhanced CT of the chest is obtained. Following the IV administration of 120 cc of Optiray 320, CT angiogram of the chest, abdomen, and pelvis was performed from the thoracic inlet to the proximal femora. Images are reviewed in the axial, sagittal, and coronal planes. 3-D MIPS images are created and assessed. IV contrast was administered without complication. A dose lowering technique was utilized adhering to the principles of ALARA. CT DOSE: 2936.46 mGy.cm FINDINGS: CHEST: Thyroid: Imaged portions of the thyroid gland are normal in size and attenuation. Low-attenuation thyroid nodules measure up to 12 mm. Thoracic aorta: No intramural hematoma is identified on the unenhanced series. The thoracic aorta is normal in course and caliber. The aortic arch demonstrates standard 3-vessel anatomy. No dissection is seen. The arch vessels are widely patent. Pulmonary vasculature: The pulmonary trunk is dilated measuring 3.7 cm in diameter. This suggests pulmonary artery hypertension. There are no filling defects identified in the central pulmonary vessels to indicate pulmonary embolus. Note that this examination was not protocoled for evaluation of the pulmonary arteries. Heart: The heart is mildly enlarged and without pericardial effusion. The coronary arteries are densely calcified. Lungs and pleural spaces: There is no airspace consolidation or pleural effusion. Dependent atelectasis is noted at the lung bases. The trachea and central airways are clear. There is a 2 mm pulmonary nodule is incidentally noted in the lingula as seen on image #130. Mediastinum: There is no mediastinal lymphadenopathy. Lori: Clear. Axillae: There is no axillary lymphadenopathy. Bony thorax: No destructive bony lesions are identified. A right shoulder arthroplasty is in place. Degenerative change is seen throughout the thoracic spine. ABDOMEN AND PELVIS: Liver: The contrast-enhanced liver is mildly enlarged, measuring 23.3 cm in length. The liver demonstrates diffusely diminished attenuation consistent with hepatic steatosis. There is no intrahepatic biliary ductal dilatation. The main portal veins appear patent. Gallbladder: Surgically absent noting clips in the gallbladder fossa. Spleen: The spleen is enlarged measuring 16.2 cm in length. The spleen is otherwise normal in appearance noting heterogeneous arterial phase enhancement. Pancreas: Unremarkable. Adrenal glands: Unremarkable. Kidneys: The contrast enhanced kidneys are normal in size and without hydronephrosis. The kidneys enhance symmetrically. A 1.6 cm cyst is noted on the right. Abdominal aorta and iliac arteries: The abdominal aorta is normal in course and caliber noting minimal atherosclerotic plaque. No dissection is seen. The abdominal aorta and iliac arteries are widely patent bilaterally. Major branches of the abdominal aorta: The celiac trunk, superior mesenteric, and inferior mesenteric arteries are widely patent. There is a replaced hepatic artery which arises from the superior mesenteric artery. The splenic vein is patent. There are 2 renal arteries seen bilaterally. These are widely patent. Stomach and bowel: There is mild colonic diverticulosis without CT evidence of acute diverticulitis. Duodenal diverticula are incidentally noted. There is a thick-walled and hyperemic loop of distal ileum in the right lower quadrant seen on image #304. The small bowel loops proximal to this loop are distended and fluid-filled, measuring up to 3.1 cm diameter. This is consistent with a small bowel obstruction. The distal small bowel and colon are decompressed. The transition point is seen on image #314. Interloop fluid is noted. There is no pneumatosis intestinalis or portal venous gas. The appendix is well-visualized and normal. Peritoneum: There is trace pelvic ascites. No intraperitoneal free air is identified. Lymphadenopathy: There are mildly enlarged and hyperemic mesenteric lymph nodes in the right lower quadrant. The largest is seen on image #308 and measures 2.2 x 2.0 cm. Pelvic viscera: The bladder, prostate, and seminal vesicles are normal as imaged. Skeletal structures: There are bilateral pars defects at L5. Mild to moderate lumbosacral spondylosis is observed. A large hemangioma seen in the body of L5. No destructive bony lesions are seen. IMPRESSION: 1. Unremarkable CT angiogram of the thoracic aorta. 2. There is no airspace consolidation or pleural effusion. 3. Mild cardiomegaly with advanced coronary artery calcification. 4. Unremarkable CT angiogram of the abdominal aorta and its major branches. 5. There is a focally thick walled and hyperemic loop of distal ileum the right lower quadrant. This likely represents a nonspecific enteritis. A stricture or mass lesion are differential considerations. 6. This thick-walled loop causes upstream small bowel obstruction. 7. Interloop fluid is noted. No pneumatosis intestinalis, portal venous gas, or intraperitoneal free air is identified. 8. There are enlarged and hyperemic mesenteric lymph nodes in the right lower quadrant. These may be reactive but are larger than expected. A 2-3 month follow-up abdominal CT is recommended for reassessment. 9. Hepatomegaly and hepatic steatosis. 10. Splenomegaly. 11. Colonic diverticulosis without CT evidence of acute diverticulitis. 12. Additional findings as above. ACT 112: Positive. There are findings on this exam that require communication between the performing entity and the patient following Patient Test Result Information Act ([place] Act 112) guidelines. Electronically signed by: Roberto Mata M.D. 05/01/2021 5:15 PM Code Status & VTE Plan Code Status Full code VTE Prophylaxis Plan VTE Prophylaxis will be ordered: Yes PG Care Time/CCT Total # of Minutes Spent Total Time Spent with Patient: Total time spent is greater than 50% in coordination of care (as documented) at patient's floor/unit and/or counseling patient: Coding Level of Care Code 48590 Initial Inpt Care Lvl 3 Diagnoses Small bowel obstruction K56.609 Enteritis K52.9 Lymphadenopathy, abdominal R59.0 GERD (gastroesophageal reflux disease) K21.9 HTN (hypertension) I10 Hypertension type: unspecified Hepatomegaly R16.0 Hepatic steatosis K76.0 Splenomegaly R16.1 History of DVT of lower extremity Z86.718 Chronic anticoagulation Z79.01 (1) HTN (hypertension) Hypertension type: unspecified Qualified Code(s): I10 - Essential (primary) hypertension
[2021-05-02] MEDS: FAMOTIDINE 20 MG in SYRINGE 3 ML IV SCH ×2 (00:12→12:11)
[2021-05-02] MEDS: METOPROLOL TARTRATE 1 MG/ML VIAL IV SCH ×6 (00:14→20:20)
[2021-05-02] MEDS: NSS + 20MEQ KCL 20 MEQ/1,000 ML BAG IV SCH ×3 (00:19→19:10)
[2021-05-02] MEDS: HYDROmorphone INJ 0.5 MG/0.5 ML SYR IV PRN ×3 (00:30→20:25)
[2021-05-02] MEDS: PIPERACILLIN/TAZOBACTAM 3.375 GM in DEXTROSE 5% 100 ML IV SCH ×2 (03:47→12:12)
[2021-05-02 04:15] LABS: Basophils # (auto) 0.02 K/uL (0-0.2); Basophils % (auto) 0.2 %; Eosinophils # (auto) 0.07 K/uL (0-0.5); Eosinophils % (auto) 0.8 %; Hemoglobin 18.3 g/dL (14.0-18.0); Immature Granulocytes # (auto) 0.09 K/uL (0.00-0.02); Lymphocytes # (auto) 0.77 K/uL (1.2-3.4); Lymphocytes % (auto) 8.5 %; Mean Corpuscular Hemoglobin 30.1 pg (25-34); Mean Corpuscular Hgb Conc 35.2 g/dL (32-36); Mean Corpuscular Volume 85.7 fL (80-100); Mean Platelet Volume 10.9 fL (7.4-10.4); Monocytes # (auto) 0.87 K/uL (0.11-0.59); Monocytes % (auto) 9.5 %; Neutrophils # (auto) 7.29 K/uL (1.4-6.5); Platelet Count 175 K/uL (130-400); RDW Coefficient of Variation 14.1 % (11.5-14.5); RDW Standard Deviation 43.4 fL (36.4-46.3); Red Blood Count 6.07 M/uL (4.7-6.1); White Blood Count 9.11 K/uL (4.8-10.8)
[2021-05-02 04:25] LABS: Partial Thromboplastin Ratio 1.2; Partial Thromboplastin Time 32.2 Seconds (21.0-31.0)
[2021-05-02 04:32] LABS: Albumin Level 3.2 gm/dl (3.4-5.0); BUN Creatinine Ratio 19.2 (10-20); Calcium 8.2 mg/dl (8.5-10.1); Creatinine Clr Calc Pharmacy 110.6 ml/min; Est GFR (African American) 103.9 ml/min; Est GFR (Non-African American) 89.6 ml/min; Potassium 4.3 mmol/L (3.5-5.1)
[2021-05-02 04:35] LABS: Albumin Globulin Ratio 0.8 (0.9-2); Bilirubin,Total 0.7 mg/dl (0.2-1); Globulin 4.1 gm/dl (2.5-4.0); Total Protein 7.3 gm/dl (6.4-8.2)
[2021-05-02] MEDS ORDERED: Nursing to Pharmacy Communication SCH (05:15)
[2021-05-02] MEDS ORDERED: HEPARIN IV BOLUS 4,000 UNITS in SYRINGE 0 ML IV ONE ×2 (06:00→18:45)
[2021-05-02 11:40] LABS: Partial Thromboplastin Ratio 1.3
[2021-05-02] MEDS ORDERED: HEPARIN SOD (PORCINE) 1000 UNIT/ML IV ONE ×2 (12:00→18:33)
[2021-05-02] MEDS ORDERED: CHLORASEPTIC 1.4% SOLN 180 ML BTL MT PRN (12:53)
--- NOTE | 2021-05-02 12:56 | Hospitalist Progress Note ---
Date of Service May 02, 2021 Assessment & Plan (1) Small bowel obstruction: Patient with presumed Crohn's disease diagnosed earlier this spring in [place], [place]. Placed on mesalamine at that time. Now with SBO 2nd to terminal ileum disease as seen on admission CT. If not Crohn's - intestinal lymphoma? other? Continue NG tube to intermittent, low-wall suction. Continue pain meds, IVF, anti-emetics, etc. I spoke with Dr Echeverria from [facility] - given history of suspected Crohn's, and given his clinical presentation, he advised starting solumedrol 40mg q12h to treat active Crohn's disease. No role for IV antibiotics at this time; thus, d/c zosyn. Hopefully with above measures this SBO will resolve without needing urgent surgery. Dr Echeverria will see Mr Wilkerson in consult formally in the am. Repeat labs in am. (2) Crohn's disease involving terminal ileum: Suspected Crohn's, diagnosed earlier this year in [facility]. Colonoscopy, CT and biopsies apparently negative but again Crohn's suspected. See above in "SBO." (3) Lymphadenopathy, abdominal: Enlarged and hyperemic mesenteric lymph nodes as seen on CT. Present in RLQ. Likely reactive to the suspected Crohn's. Given the hepatomegaly and splenomegaly, however, he will need repeat imaging upon return to [place] following this admission. Would need to ensure no malignancy or other pathology. (4) GERD (gastroesophageal reflux disease): Famotidine 20 mg IV every 12 hours (5) HTN (hypertension): Hold atenolol while NPO. Lopressor 5 mg IV every 4 hours in alice. BPs mildly elevated with the IV lopressor in place but acceptable for now. (6) Hepatomegaly: Hepatomegaly/hepatic steatosis/splenomegaly- as seen on CT yesterday. primary liver disease? autoimmune? malignancy (given the intra-abdominal lymph nodes)? other? will need f/u in [place] following this admission. I request his records from [facility] in [place] to compare. (7) Hepatic steatosis: See above (8) Splenomegaly: etiology? see above. (9) History of DVT of lower extremity: History of recurrent DVT of right lower extremity -- HOLD xarelto. Heparin drip in alice while n.p.o. (10) Epistaxis: 2nd to NG tube irritation afrin nasal spray - 1 spray q12h prn Admission and Anticipated Discharge Date Admission Date: May 01, 2021 Subjective patient reports that for several years he has had abdominal symptoms - diarrhea, discomfort. finally saw GI earlier this year in [facility] (~November). underwent EGD/colonoscopy - both "normal" and biopsies apparently also normal. despite the normal endoscopies his GI physician felt that he may have Crohn's disease. was placed on mesalamine. despite such he continued to have GI symptoms. underwent CT abd/pelvis -- date uncertain -- but told it "was normal." denies weight loss, chronic nightsweats, chronic fevers/chills. since admission has had no passage of flatus. NG tube w/ copious bilious output. abd distension improved from admission, however. Review of Systems Constitutional: no fever and no chills Ear, Nose, Mouth, Throat: + epistaxis (right nare - since NG tube insertion) and + sore throat Respiratory: no cough, no dyspnea and no dyspnea on exertion Cardiovascular: no chest pain Gastrointestinal: as per Subjective / HPI, + abdominal pain, + bloating and + nausea; no vomiting and no blood in stools Physical Exam Constitutional: well developed and well nourished; no acute distress and no altered mental status ENMT: Nose: + nare abnormality (right nare with NG tube in place); no external nose abnormality and no epistaxis Mouth: + oropharynx abnormality (mild erythema ) and + dry oral mucous membranes Respiratory: normal respiratory effort, lungs clear to auscultation Cardiovascular: Rate/Rhythm: regular rate and regular rhythm Heart Sounds: normal S1 and normal S2; no murmur Vessels: posterior tibial pulses present and dorsalis pedis pulses present; no JVD Extremities: no edema Gastrointestinal (Abdomen): Inspection/Auscultation: + abdomen distended and + hypoactive bowel sounds Percussion/Palpation: + splenomegaly; abdomen nontender, no guarding and no hepatomegaly Skin: no rashes, warm and dry Psychiatric: Orientation: alert and oriented x 3 Results & Data Results & Data ([facility]) Vital Signs (Past 12 Hours) Vital Signs Temp Pulse Pulse Resp BP BP Pulse Ox 05/02/21 11:52 36.7 C 88 19 143/91 H 94 05/02/21 09:00 103 H 05/02/21 07:44 95 H 145/90 H 05/02/21 07:00 36.8 C 20 142/96 H 95 05/02/21 03:51 101 H 126/86 05/02/21 02:18 36.7 C 98 H 16 125/83 94 05/02/21 01:24 114 H 05/02/21 01:03 105 H Laboratory Results Laboratory Results - last 24 hr 05/02/21 05/02/21 05/02/21 03:59 03:59 03:59 WBC 9.11 RBC 6.07 Hgb 18.3 H Hct 52.0 MCV 85.7 MCH 30.1 MCHC 35.2 RDW Std Deviation 43.4 RDW Coeff of Anat 14.1 Plt Count 175 MPV 10.9 H Immature Gran % (Auto) 1.0 Neut % (Auto) 80.0 Lymph % (Auto) 8.5 [place] % (Auto) 9.5 Eos % (Auto) 0.8 Baso % (Auto) 0.2 Neut # (Auto) 7.29 H Lymph # (Auto) 0.77 L [place] # (Auto) 0.87 H Eos # (Auto) 0.07 Baso # (Auto) 0.02 Immature Gran # (Auto) 0.09 H APTT 32.2 H PTT Ratio 1.2 Sodium 136 Potassium 4.3 Chloride 106 Carbon Dioxide 26 Anion Gap 4.0 BUN 18 Creatinine 0.94 Est Cr Clr Drug Dosing 110.6 Est GFR ( Amer) 103.9 Est GFR (Non-Af Amer) 89.6 BUN/Creatinine Ratio 19.2 Glucose 143 H Calcium 8.2 L Total Bilirubin 0.7 AST 27 ALT 39 Alkaline Phosphatase 84 Total Protein 7.3 Albumin 3.2 L Globulin 4.1 H Albumin/Globulin Ratio 0.8 L 05/02/21 05/02/21 11:07 18:05 WBC RBC Hgb Hct MCV MCH MCHC RDW Std Deviation RDW Coeff of Anat Plt Count MPV Immature Gran % (Auto) Neut % (Auto) Lymph % (Auto) [place] % (Auto) Eos % (Auto) Baso % (Auto) Neut # (Auto) Lymph # (Auto) [place] # (Auto) Eos # (Auto) Baso # (Auto) Immature Gran # (Auto) APTT 33.0 H 32.5 H PTT Ratio 1.3 1.2 Sodium Potassium Chloride Carbon Dioxide Anion Gap BUN Creatinine Est Cr Clr Drug Dosing Est GFR ( Amer) Est GFR (Non-Af Amer) BUN/Creatinine Ratio Glucose Calcium Total Bilirubin AST ALT Alkaline Phosphatase Total Protein Albumin Globulin Albumin/Globulin Ratio PG Care Time/CCT Total # of Minutes Spent Total Time Spent with Patient: Total time spent is greater than 50% in coordination of care (as documented) at patient's floor/unit and/or counseling patient: Coding Level of Care Code 59265 Subseq Hosp Care Lvl 3 Diagnoses Small bowel obstruction K56.609 Crohn's disease involving terminal ileum K50.00 Lymphadenopathy, abdominal R59.0 GERD (gastroesophageal reflux disease) K21.9 HTN (hypertension) I10 Hypertension type: unspecified Hepatomegaly R16.0 Hepatic steatosis K76.0 Splenomegaly R16.1 History of DVT of lower extremity Z86.718 Epistaxis R04.0 (1) HTN (hypertension) Hypertension type: unspecified Qualified Code(s): I10 - Essential (primary) hypertension
[2021-05-02] MEDS: methylPREDNISolone 40 MG in SYRINGE 0 ML IV SCH ×2 (13:19→13:23)
[2021-05-02] MEDS: OXYMETAZOLINE 0.05% 30 ML BTL PRN (13:20)
[2021-05-02] MEDS: HEPARIN SODIUM/DEXTROSE 25,000 UNITS/500 ML BAG IV SCH (18:04)
[2021-05-02 18:32] LABS: Partial Thromboplastin Ratio 1.2; Partial Thromboplastin Time 32.5 Seconds (21.0-31.0)
[2021-05-03] MEDS: FAMOTIDINE 20 MG in SYRINGE 3 ML IV SCH ×3 (00:01→22:36)
[2021-05-03] MEDS: METOPROLOL TARTRATE 1 MG/ML VIAL IV SCH ×6 (00:03→20:55)
[2021-05-03] MEDS: HYDROmorphone INJ 0.5 MG/0.5 ML SYR IV PRN (01:12)
[2021-05-03] MEDS: methylPREDNISolone 40 MG in SYRINGE 0 ML IV SCH ×2 (01:12→13:30)
[2021-05-03] MEDS: OXYMETAZOLINE 0.05% 30 ML BTL PRN ×2 (01:16→14:15)
[2021-05-03 01:46] LABS: Partial Thromboplastin Ratio 1.4; Partial Thromboplastin Time 35.6 Seconds (21.0-31.0)
[2021-05-03] MEDS ORDERED: Nursing to Pharmacy Communication SCH (02:15)
[2021-05-03] MEDS ORDERED: HEPARIN IV BOLUS 4,000 UNITS in SYRINGE 0 ML IV ONE (02:30)
[2021-05-03] MEDS: NSS + 20MEQ KCL 20 MEQ/1,000 ML BAG IV SCH ×3 (04:07→22:40)
[2021-05-03] MEDS: HEPARIN SODIUM/DEXTROSE 25,000 UNITS/500 ML BAG IV SCH ×4 (08:28→21:40)
[2021-05-03 09:53] LABS: Basophils # (auto) 0.01 K/uL (0-0.2); Basophils % (auto) 0.1 %; Eosinophils # (auto) 0.01 K/uL (0-0.5); Eosinophils % (auto) 0.1 %; Hematocrit (blood only) 47.6 % (42-52); Hemoglobin 16.6 g/dL (14.0-18.0); Immature Granulocytes # (auto) 0.05 K/uL (0.00-0.02); Immature Granulocytes % (auto) 0.6 %; Lymphocytes # (auto) 0.92 K/uL (1.2-3.4); Lymphocytes % (auto) 10.6 %; Mean Corpuscular Hemoglobin 30.1 pg (25-34); Mean Corpuscular Hgb Conc 34.9 g/dL (32-36); Mean Corpuscular Volume 86.4 fL (80-100); Mean Platelet Volume 10.9 fL (7.4-10.4); Monocytes # (auto) 0.43 K/uL (0.11-0.59); Neutrophils # (auto) 7.22 K/uL (1.4-6.5); Neutrophils % (auto) 83.6 %; Platelet Count 160 K/uL (130-400); RDW Coefficient of Variation 13.9 % (11.5-14.5); Red Blood Count 5.51 M/uL (4.7-6.1); White Blood Count 8.64 K/uL (4.8-10.8)
[2021-05-03 10:04] LABS: Partial Thromboplastin Ratio 1.4; Partial Thromboplastin Time 37.3 Seconds (21.0-31.0)
[2021-05-03 10:12] LABS: BUN Creatinine Ratio 21.4 (10-20); Calcium 8.2 mg/dl (8.5-10.1); Creatinine Clr Calc Pharmacy 113.3 ml/min; Est GFR (Non-African American) 93.2 ml/min; Magnesium 1.9 mg/dl (1.8-2.4); Potassium 3.8 mmol/L (3.5-5.1)
[2021-05-03] MEDS ORDERED: HEPARIN SOD (PORCINE) 1000 UNIT/ML IV ONE (10:30)
--- NOTE | 2021-05-03 11:58 | Gastrointestinal Consultation ---
Date of Consultation May 03, 2021 Assessment & Plan (1) Abdominal pain: (2) Small bowel obstruction: (3) Crohn's disease involving terminal ileum: Clearly he will require extensive workup by home GI team. I did recommend an evaluation at [facility] with the IBD Center. I would recommend continue Solu-Medrol 40 mg IV BID Will need 8 week steroid taper upon discharge starting a 40 mg by mouth daily, and decreasing by 5 mg each week. If no vomiting or increased abdominal distention, consider pulling NG Tube later today and advancing diet to clear liquids Though most likely Crohn's disease, he will need further workup and he understands and will call for appointment in the AM with his PCP in [place] and request Consult with [facility] at that time. History of Present Illness Reason for Consultation: SBO, Crohn's Disease Attending Physician: Wayne Castro History of Present Illness Roel Wilkerson is a 55 yo CM who was diagnosed with Crohn's disease earlier this spring by his home [employer] in [place], [place]. He was placed on Mesalamine therapy, however, continued to use up to 8 Imodium tablets due to diarrhea. He states that despite the Imodium, he was still having 3 to 4 BM's per day. He was traveling for work, and developed severe abdominal pain and distention. He presented to [facility] ER yesterday, and was found to have a SBO involving the terminal ileum. He was subsequently admitted, had an NG Tube placed, and was placed on Solumedrol 40 mg IV BID. At the time I saw him this morning, he was feeling much improved. He did have a BM this morning, and notes a significant amount of NG Tube aspirate overnight. He states that he is still having some mild RLQ abdominal pain, 3/10 in intensity, non-radiating, without exacerbating factors. His NG Tube is currently clamped, however, he feels that his abdominal distention is almost completely improved. He denies any fevers, chills, nausea, vomiting, hematemesis, melena, hematochezia, skin rash or eye pain. He denies any further complaints at present. Allergies Allergy/AdvReac Type Severity Reaction Status Date / Time ciprofloxacin [From Cipro] Allergy Severe Anaphylaxis Unverified 05/01/21 18:35 Home Medications Medication Instructions Recorded Confirmed Type acetaminophen [Tylenol Extra 1,000 mg PO Q6H PRN 05/01/21 05/01/21 History Strength] atenolol 25 mg PO BID 05/01/21 05/01/21 History esomeprazole magnesium [Nexium 20 mg PO QAM 05/01/21 05/01/21 History 24HR] rivaroxaban [Xarelto] 20 mg PO QAM 05/01/21 05/01/21 History Patient History Medical History GERD (gastroesophageal reflux disease) History of DVT of lower extremity HTN (hypertension) Social History Smoking Status: Never smoker Hx Alcohol Use: No Hx Substance Use: No Preferred Language: Singaporean Communication Ability: Effective Beliefs That Will Affect Care: None Current Living Situation: Alone Current Living Situation Comment: home Feels Safe at Home: Yes Assistive Devices: Glasses Review of Systems Review of Systems: All systems reviewed & are unremarkable except as noted in HPI & below Physical Exam Constitutional: WD/WN, vitals as above Eyes: + anicteric sclerae ENMT: Ears: no hearing impairment and no external ear abnormality Nose: no external nose abnormality Neck: trachea midline, no thyromegaly Respiratory: normal respiratory effort, lungs clear to auscultation Cardiovascular: RRR, no murmur, no edema Gastrointestinal (Abdomen): Inspection/Auscultation: abdomen normal to inspection and normal bowel sounds; abdomen not distended Percussion/Palpation: + abdomen tender (RLQ) and abdomen soft; no hepatosplenomegaly Skin: no rashes, warm and dry Psychiatric: A+Ox3, euthymic affect Results & Data ([facility]) Vital Signs (Past 12 Hours) Vital Signs Temp Pulse Pulse Resp BP BP Pulse Ox 05/03/21 08:31 89 159/89 H 05/03/21 08:00 80 05/03/21 07:35 36.7 C 86 16 155/91 H 90 05/03/21 04:04 84 157/94 H 05/03/21 02:51 36.6 C 78 18 158/89 H 94 05/03/21 00:03 87 132/88 PG Care Time/CCT Total # of Minutes Spent Total Time Spent with Patient: Total time spent is greater than 50% in coordination of care (as documented) at patient's floor/unit and/or counseling patient: Coding Level of Care Code 92597 Inpt Consult Level 4 Diagnoses Abdominal pain R10.84 Abdominal location: generalized Small bowel obstruction K56.609 Crohn's disease involving terminal ileum K50.00 (1) Abdominal pain Abdominal location: generalized Qualified Code(s): R10.84 - Generalized abdominal pain
--- NOTE | 2021-05-03 13:03 | Hospitalist Progress Note ---
Date of Service May 03, 2021 Assessment & Plan (1) Small bowel obstruction: Patient with presumed Crohn's disease diagnosed earlier this spring in [place], [place]. Placed on mesalamine at that time. Now with SBO 2nd to terminal ileum disease as seen on admission CT. SBO likely due to Crohn's involvement of ileum. Can't rule out other cause (intestinal lymphoma, etc) but much less likely. Patient passed small BM today so hopefully things are opening up. Continue NG tube to intermittent, low-wall suction. Continue pain meds, IVF, anti-emetics, etc. Continue IV solumedrol 40mg BID as recommended by GI. No evidence of any complicating infectious process. Dr Echeverria saw in consult today from [facility] - appreciate his recs (2) Crohn's disease involving terminal ileum: Suspected Crohn's, diagnosed earlier this year in [facility]. Colonoscopy, CT and biopsies apparently negative but again Crohn's suspected. See above in "SBO." Cont IV steroids. Will need f/u upon return to [place]. (3) Lymphadenopathy, abdominal: Enlarged and hyperemic mesenteric lymph nodes as seen on CT. Present in RLQ. Likely reactive to the suspected Crohn's. Given the hepatomegaly and splenomegaly, however, he will need repeat imaging upon return to [place] following this admission. Would need to ensure no malignancy or other pathology. (4) GERD (gastroesophageal reflux disease): Famotidine 20 mg IV every 12 hours (5) HTN (hypertension): Hold atenolol while NPO. Lopressor 5 mg IV every 4 hours in alice. BPs still high despite above -- add hydralazine 5mg IV q8h. (6) Hepatomegaly: Hepatomegaly/hepatic steatosis/splenomegaly- as seen on CT this admission. primary liver disease? autoimmune? malignancy (given the intra-abdominal lymph nodes)? other? will need f/u in [place] following this admission. I requested his records from [facility] in [place] to compare. (7) Hepatic steatosis: See above (8) Splenomegaly: etiology? see above. (9) History of DVT of lower extremity: History of recurrent DVT of right lower extremity -- HOLD xarelto. Heparin drip in [place] while n.p.o. (10) Epistaxis: 2nd to NG tube irritation resolved s/p afrin nasal spray ok to d/c tele -- move to med/surg Admission and Anticipated Discharge Date Admission Date: May 01, 2021 Subjective tele overnight wnl he c/o nausea after attempt at NG tube clamping earlier thus, NG tube placed back to suction no bile in NG tube canister passing minimal amount of flatus BUT did have small BM this am no abd pain Review of Systems Constitutional: no fever and no chills Respiratory: no cough, no dyspnea and no dyspnea on exertion Cardiovascular: no chest pain Physical Exam Constitutional: well developed and well nourished; no acute distress and no altered mental status ENMT: Nose: + nare abnormality (right nare with NG tube in place); no external nose abnormality and no epistaxis Mouth: + oropharynx abnormality (mild erythema ) Respiratory: normal respiratory effort, lungs clear to auscultation Cardiovascular: Rate/Rhythm: regular rate and regular rhythm Heart Sounds: normal S1 and normal S2; no murmur Vessels: posterior tibial pulses present and dorsalis pedis pulses present; no JVD Extremities: no edema Gastrointestinal (Abdomen): Inspection/Auscultation: + abdomen distended (but improved from 05/02 exam) and + hypoactive bowel sounds (slightly better than yesterday) Percussion/Palpation: + splenomegaly (tip palpable); abdomen nontender, no guarding and no hepatomegaly Skin: no rashes, warm and dry Psychiatric: Orientation: alert and oriented x 3 Results & Data Results & Data ([facility]) Vital Signs (Past 12 Hours) Vital Signs Temp Pulse Pulse Resp BP BP Pulse Ox 05/03/21 08:31 89 159/89 H 05/03/21 08:00 80 05/03/21 07:35 36.7 C 86 16 155/91 H 90 05/03/21 04:04 84 157/94 H 05/03/21 02:51 36.6 C 78 18 158/89 H 94 Laboratory Results Laboratory Results - last 24 hr 05/02/21 05/03/21 05/03/21 18:05 01:15 09:22 WBC 8.64 RBC 5.51 Hgb 16.6 Hct 47.6 MCV 86.4 MCH 30.1 MCHC 34.9 RDW Std Deviation 44.0 RDW Coeff of Anat 13.9 Plt Count 160 MPV 10.9 H Immature Gran % (Auto) 0.6 Neut % (Auto) 83.6 Lymph % (Auto) 10.6 [place] % (Auto) 5.0 Eos % (Auto) 0.1 Baso % (Auto) 0.1 Neut # (Auto) 7.22 H Lymph # (Auto) 0.92 L [place] # (Auto) 0.43 Eos # (Auto) 0.01 Baso # (Auto) 0.01 Immature Gran # (Auto) 0.05 H APTT 32.5 H 35.6 H PTT Ratio 1.2 1.4 Sodium Potassium Chloride Carbon Dioxide Anion Gap BUN Creatinine Est Cr Clr Drug Dosing Est GFR ( Amer) Est GFR (Non-Af Amer) BUN/Creatinine Ratio Glucose Calcium Magnesium 05/03/21 05/03/21 09:22 09:22 WBC RBC Hgb Hct MCV MCH MCHC RDW Std Deviation RDW Coeff of Anat Plt Count MPV Immature Gran % (Auto) Neut % (Auto) Lymph % (Auto) [place] % (Auto) Eos % (Auto) Baso % (Auto) Neut # (Auto) Lymph # (Auto) [place] # (Auto) Eos # (Auto) Baso # (Auto) Immature Gran # (Auto) APTT 37.3 H PTT Ratio 1.4 Sodium 138 Potassium 3.8 Chloride 106 Carbon Dioxide 26 Anion Gap 6.0 BUN 20 H Creatinine 0.91 Est Cr Clr Drug Dosing 113.3 Est GFR ( Amer) 108.0 Est GFR (Non-Af Amer) 93.2 BUN/Creatinine Ratio 21.4 H Glucose 142 H Calcium 8.2 L Magnesium 1.9 PG Care Time/CCT Total # of Minutes Spent Total Time Spent with Patient: Total time spent is greater than 50% in coordination of care (as documented) at patient's floor/unit and/or counseling patient: Coding Level of Care Code 76400 Subseq Hosp Care Lvl 2 Diagnoses Small bowel obstruction K56.609 Crohn's disease involving terminal ileum K50.00 Lymphadenopathy, abdominal R59.0 GERD (gastroesophageal reflux disease) K21.9 HTN (hypertension) I10 Hypertension type: unspecified Hepatomegaly R16.0 Hepatic steatosis K76.0 Splenomegaly R16.1 History of DVT of lower extremity Z86.718 Epistaxis R04.0 (1) HTN (hypertension) Hypertension type: unspecified Qualified Code(s): I10 - Essential (primary) hypertension
[2021-05-03 17:06] LABS: Partial Thromboplastin Ratio 1.6; Partial Thromboplastin Time 43.3 Seconds (21.0-31.0)
[2021-05-03] MEDS: hydrALAZINE HCL 20 MG/ML VIAL IV SCH (23:12)
[2021-05-04] MEDS: METOPROLOL TARTRATE 1 MG/ML VIAL IV SCH ×6 (00:31→20:13)
[2021-05-04] MEDS: methylPREDNISolone 40 MG in SYRINGE 0 ML IV SCH ×2 (00:36→14:03)
[2021-05-04 01:21] LABS: Partial Thromboplastin Ratio 1.6; Partial Thromboplastin Time 42.3 Seconds (21.0-31.0)
[2021-05-04 07:46] LABS: Partial Thromboplastin Ratio 1.5; Partial Thromboplastin Time 40.6 Seconds (21.0-31.0)
[2021-05-04] MEDS: hydrALAZINE HCL 20 MG/ML VIAL IV SCH ×3 (07:58→22:48)
[2021-05-04 08:07] LABS: BUN Creatinine Ratio 19.1 (10-20); Calcium 8.5 mg/dl (8.5-10.1); Creatinine Clr Calc Pharmacy 122.7 ml/min; Est GFR (African American) 112.7 ml/min; Est GFR (Non-African American) 97.2 ml/min; Potassium 4.1 mmol/L (3.5-5.1)
[2021-05-04] MEDS: NSS + 20MEQ KCL 20 MEQ/1,000 ML BAG IV SCH ×2 (09:43→20:05)
[2021-05-04] MEDS: HEPARIN SODIUM/DEXTROSE 25,000 UNITS/500 ML BAG IV SCH ×3 (09:43→20:09)
[2021-05-04] MEDS: FAMOTIDINE 20 MG in SYRINGE 3 ML IV SCH ×2 (12:17→22:50)
--- NOTE | 2021-05-04 12:29 | Electrocardiogram Report ---
Test Reason : Blood Pressure : / mmHG Vent. Rate : 083 BPM Atrial Rate : 083 BPM P-R Int : 166 ms QRS Dur : 094 ms QT Int : 352 ms P-R-T Axes : 059 024 026 degrees QTc Int : 413 ms Normal sinus rhythm Possible Left atrial enlargement Left ventricular hypertrophy Nonspecific T wave abnormality Abnormal ECG No previous ECGs available Confirmed by Zeke Tapia ([id number]) on 05/04/2021 12:28:52 PM Referred By: REFERRED SELF Confirmed By:Zeke Tapia
--- NOTE | 2021-05-04 12:32 | Electrocardiogram Report ---
Test Reason : Blood Pressure : / mmHG Vent. Rate : 104 BPM Atrial Rate : 104 BPM P-R Int : 166 ms QRS Dur : 086 ms QT Int : 322 ms P-R-T Axes : 035 -04 -18 degrees QTc Int : 423 ms Sinus tachycardia Possible Left atrial enlargement Left ventricular hypertrophy Inferior infarct , age undetermined Abnormal ECG When compared with ECG of 01-MAY-2021 16:23, (unconfirmed) Inferior infarct is now Present Nonspecific T wave abnormality no longer evident in Lateral leads Confirmed by Zeke Tapia ([id number]) on 05/04/2021 12:31:59 PM Referred By: REFERRED SELF Confirmed By:Zeke Tapia
[2021-05-04 14:34] LABS: Partial Thromboplastin Ratio 1.6; Partial Thromboplastin Time 43.1 Seconds (21.0-31.0)
[2021-05-04 21:39] LABS: Partial Thromboplastin Time 51.3 Seconds (21.0-31.0)
--- NOTE | 2021-05-04 23:19 | Hospitalist Progress Note ---
Date of Service May 04, 2021 Assessment & Plan (1) Small bowel obstruction: Patient with presumed Crohn's disease diagnosed earlier this spring in [place], [place]. Placed on mesalamine at that time. I received path reports dated 10/2020 from [place], [facility] following his EGD/colonoscopy. Terminal ileum biopsies indeed showed inflammation with ulceration. Now with SBO 2nd to terminal ileum disease as seen on admission CT. SBO likely due to Crohn's involvement of ileum. Patient had another large BM today. D/c NG tube; tolerated clamping today. Lower IV fluid rate. Sips of clears; if he tolerates, then clear liquid tray. Re-eval in am. Continue IV solumedrol 40mg BID as recommended by GI. No evidence of any complicating infectious process. Appreciate Dr Echeverria's consultation. If he does well overnight then change solumedrol to prednisone. (2) Crohn's disease involving terminal ileum: Suspected Crohn's, diagnosed 10/2020 in [facility]. Path report from bx of terminal ileum during 10/2020 colonoscopy with inflammation & ulceration. Cont IV steroids. Will need f/u upon return to [place]. Appreciate Dr Echeverria's consultation. (3) Lymphadenopathy, abdominal: Enlarged and hyperemic mesenteric lymph nodes as seen on CT. Present in RLQ. Likely reactive to the suspected Crohn's. Given the hepatomegaly and splenomegaly, however, he will need repeat imaging upon return to [place] following this admission. Would need to ensure no malignancy or other pathology. I requested his CT report from [place] from early 2020 but have not received such to date. Will place his CT on CD for him to bring back to [place]. (4) GERD (gastroesophageal reflux disease): Famotidine 20 mg IV every 12 hours (5) HTN (hypertension): Lopressor 5 mg IV every 4 hours in alice. hydralazine 5mg IV q8h. Switch to po meds tomorrow if tolerating PO. (6) Hepatomegaly: Hepatomegaly/hepatic steatosis/splenomegaly- as seen on CT this admission. primary liver disease? autoimmune? malignancy (given the intra-abdominal lymph nodes)? other? will need f/u in [place] following this admission. I requested his records from [facility] in [place] to compare but thus far haven't received. (7) Hepatic steatosis: See above (8) Splenomegaly: etiology? see above. (9) History of DVT of lower extremity: History of DVT of right lower extremity -- HOLD xarelto. Heparin drip in meantime. Can likely d/c heparin tomorrow and restart xarelto. (10) Epistaxis: 2nd to NG tube irritation resolved making nice progress hopefully home next 1-2 days Admission and Anticipated Discharge Date Admission Date: May 01, 2021 Subjective patient had very large bowel movement this am and passing plenty of flatus he has an appetite denies abd pain no dyspnea no cp walking the hallways frequently feels good bloating resolved NG tube clamped following my visit tolerated such then NG tube pulled thereafter Review of Systems Constitutional: no fever and no chills Respiratory: no cough and no dyspnea Cardiovascular: no chest pain Physical Exam Constitutional: well developed and well nourished; no acute distress and no altered mental status ENMT: Nose: + nare abnormality (right nare with NG tube in place); no external nose abnormality Mouth: no oropharynx abnormality Respiratory: normal respiratory effort, lungs clear to auscultation Cardiovascular: Rate/Rhythm: regular rate and regular rhythm Heart Sounds: normal S1 and normal S2; no murmur Vessels: posterior tibial pulses present and dorsalis pedis pulses present; no JVD Extremities: no edema Gastrointestinal (Abdomen): Inspection/Auscultation: normal bowel sounds; abdomen not distended Percussion/Palpation: + splenomegaly (tip palpable); abdomen nontender, no guarding and no hepatomegaly Skin: no rashes, warm and dry Psychiatric: Orientation: alert and oriented x 3 Results & Data Results & Data ([facility]) Vital Signs (Past 12 Hours) Vital Signs Temp Pulse Pulse Resp BP BP BP 05/04/21 22:00 75 162/92 H 05/04/21 20:13 77 160/97 H 05/04/21 16:45 76 162/92 H 05/04/21 16:43 36.6 C 76 18 151/106 H 05/04/21 12:17 86 162/92 H Pulse Ox 05/04/21 22:00 05/04/21 20:13 05/04/21 16:45 05/04/21 16:43 95 05/04/21 12:17 Laboratory Results Laboratory Results - last 24 hr 06/28/21 06/28/21 06/28/21 00:58 07:13 07:13 APTT 42.3 H 40.6 H PTT Ratio 1.6 1.5 Sodium 136 Potassium 4.1 Chloride 106 Carbon Dioxide 25 Anion Gap 5.0 BUN 16 Creatinine 0.84 Est Cr Clr Drug Dosing 122.7 Est GFR ( Amer) 112.7 Est GFR (Non-Af Amer) 97.2 BUN/Creatinine Ratio 19.1 Glucose 150 H Calcium 8.5 05/04/21 05/04/21 14:01 20:55 APTT 43.1 H 51.3 H* PTT Ratio 1.6 2.0 Sodium Potassium Chloride Carbon Dioxide Anion Gap BUN Creatinine Est Cr Clr Drug Dosing Est GFR ( Amer) Est GFR (Non-Af Amer) BUN/Creatinine Ratio Glucose Calcium PG Care Time/CCT Total # of Minutes Spent Total Time Spent with Patient: Total time spent is greater than 50% in coordination of care (as documented) at patient's floor/unit and/or counseling patient: Coding Level of Care Code 05183 Subseq Hosp Care Lvl 2 Diagnoses Small bowel obstruction K56.609 Crohn's disease involving terminal ileum K50.00 Lymphadenopathy, abdominal R59.0 GERD (gastroesophageal reflux disease) K21.9 HTN (hypertension) I10 Hypertension type: unspecified Hepatomegaly R16.0 Hepatic steatosis K76.0 Splenomegaly R16.1 History of DVT of lower extremity Z86.718 Epistaxis R04.0 (1) HTN (hypertension) Hypertension type: unspecified Qualified Code(s): I10 - Essential (primary) hypertension
[2021-05-05] MEDS: METOPROLOL TARTRATE 1 MG/ML VIAL IV SCH ×4 (00:24→12:49)
[2021-05-05] MEDS: methylPREDNISolone 40 MG in SYRINGE 0 ML IV SCH (01:07)
[2021-05-05] MEDS: HEPARIN SODIUM/DEXTROSE 25,000 UNITS/500 ML BAG IV SCH (06:38)
[2021-05-05 06:56] LABS: Hemoglobin 17.8 g/dL (14.0-18.0); Mean Corpuscular Hgb Conc 34.2 g/dL (32-36); Mean Corpuscular Volume 87.7 fL (80-100); Mean Platelet Volume 11.1 fL (7.4-10.4); Platelet Count 186 K/uL (130-400); RDW Standard Deviation 45.1 fL (36.4-46.3); Red Blood Count 5.93 M/uL (4.7-6.1); White Blood Count 7.77 K/uL (4.8-10.8)
[2021-05-05 07:16] LABS: Partial Thromboplastin Ratio 2.2
[2021-05-05 07:23] LABS: BUN Creatinine Ratio 16.5 (10-20); Calcium 9.1 mg/dl (8.5-10.1); Creatinine Clr Calc Pharmacy 124.2 ml/min; Est GFR (African American) 113.2 ml/min; Est GFR (Non-African American) 97.7 ml/min
[2021-05-05] MEDS: hydrALAZINE HCL 20 MG/ML VIAL IV SCH (08:41)
[2021-05-05] MEDS ORDERED: ACETAMINOPHEN 500 MG TAB PO STA (09:12)
[2021-05-05] MEDS ORDERED: KETOROLAC 30 MG/ML VIAL IV ONE (09:12)
[2021-05-05] MEDS ORDERED: RIVAROXABAN 20 MG TAB PO SCH (12:15)
[2021-05-05] MEDS ORDERED: ATENOLOL 25 MG TABLET PO ONE (12:15)
[2021-05-05] MEDS: FAMOTIDINE 20 MG in SYRINGE 3 ML IV SCH (12:50)
--- NOTE | 2021-05-05 13:23 | Discharge Summary ---
Date of Service date of admission - May 01, 2021 date of discharge - May 05, 2021 Admission HPI Per Admitting Provider The patient is a 55-year-old male with a past medical history including right lower extremity DVT on Xarelto, hypertension, GERD and obesity. He was also diagnosed with suspected Crohn's disease in early 2020. He presents with mild abdominal discomfort that started overnight and then became more severe over the last 3 hours. Describes a ripping sensation in the middle of his abdomen and some nausea. States he feels quite sweaty. His only previous surgery was a laparoscopic cholecystectomy. Work-up in the emergency department included a CT angiography of chest, abdomen and pelvis which was significant for a small bowel obstruction associated with enteritis causing focally thick-walled and hyperemic loop of distal ileum in the right lower quadrant. There were also enlarged and hyperemic mesenteric lymph nodes in the right lower quadrant, which were larger than expected, and follow- up CT in 2 to 3 months was advised. Hepatomegaly, hepatic steatosis and splenomegaly were noted. Colonic diverticulosis without diverticulitis was noted. NG tube to low intermittent suction was placed in the ED, with free removal of approximately 2 L of fluid. Principal Diagnosis SBO 2nd to Crohn's disease of the terminal ileum - resolved s/p NG tube decompression and IV steroids Discharge Exam Constitutional well developed and well nourished; no acute distress and no altered mental status ENMT external ear and nose normal, oropharynx normal Respiratory normal respiratory effort, lungs clear to auscultation Cardiovascular Rate/Rhythm: regular rate and regular rhythm Heart Sounds: normal S1 and normal S2; no murmur Vessels: posterior tibial pulses present and dorsalis pedis pulses present; no JVD Extremities: no edema Gastrointestinal (Abdomen) Inspection/Auscultation: normal bowel sounds; abdomen not distended Percussion/Palpation: abdomen soft and + splenomegaly (tip palpable); abdomen nontender, no guarding and no hepatomegaly Skin no rashes, warm and dry Psychiatric Orientation: alert and oriented x 3 Discharge Data Allergies Allergy/AdvReac Type Severity Reaction Status Date / Time ciprofloxacin [From Cipro] Allergy Severe Anaphylaxis Unverified 05/01/21 18:35 Consultations [facility] - Dr Devlin Case Ordered Studies Abdomen/Pelvis CTA 05/01/21 16:40 CT ANGIOGRAM OF THE CHEST COMBO; CT ANGIOGRAM OF THE ABDOMEN AND PELVIS CLINICAL HISTORY: Hypertension. Generalized abdominal pain. COMPARISON STUDY: No priors. TECHNIQUE: Unenhanced CT of the chest is obtained. Following the IV administration of 120 cc of Optiray 320, CT angiogram of the chest, abdomen, and pelvis was performed from the thoracic inlet to the proximal femora. Images are reviewed in the axial, sagittal, and coronal planes. 3-D MIPS images are created and assessed. IV contrast was administered without complication. A dose lowering technique was utilized adhering to the principles of ALARA. CT DOSE: 2936.46 mGy.cm FINDINGS: CHEST: Thyroid: Imaged portions of the thyroid gland are normal in size and attenuation. Low-attenuation thyroid nodules measure up to 12 mm. Thoracic aorta: No intramural hematoma is identified on the unenhanced series. The thoracic aorta is normal in course and caliber. The aortic arch demonstrates standard 3-vessel anatomy. No dissection is seen. The arch vessels are widely patent. Pulmonary vasculature: The pulmonary trunk is dilated measuring 3.7 cm in diameter. This suggests pulmonary artery hypertension. There are no filling defects identified in the central pulmonary vessels to indicate pulmonary embolus. Note that this examination was not protocoled for evaluation of the pulmonary arteries. Heart: The heart is mildly enlarged and without pericardial effusion. The coronary arteries are densely calcified. Lungs and pleural spaces: There is no airspace consolidation or pleural effusion. Dependent atelectasis is noted at the lung bases. The trachea and central airways are clear. There is a 2 mm pulmonary nodule is incidentally noted in the lingula as seen on image #130. Mediastinum: There is no mediastinal lymphadenopathy. Lori: Clear. Axillae: There is no axillary lymphadenopathy. Bony thorax: No destructive bony lesions are identified. A right shoulder arthroplasty is in place. Degenerative change is seen throughout the thoracic spine. ABDOMEN AND PELVIS: Liver: The contrast-enhanced liver is mildly enlarged, measuring 23.3 cm in length. The liver demonstrates diffusely diminished attenuation consistent with hepatic steatosis. There is no intrahepatic biliary ductal dilatation. The main portal veins appear patent. Gallbladder: Surgically absent noting clips in the gallbladder fossa. Spleen: The spleen is enlarged measuring 16.2 cm in length. The spleen is otherwise normal in appearance noting heterogeneous arterial phase enhancement. Pancreas: Unremarkable. Adrenal glands: Unremarkable. Kidneys: The contrast enhanced kidneys are normal in size and without hydronephrosis. The kidneys enhance symmetrically. A 1.6 cm cyst is noted on the right. Abdominal aorta and iliac arteries: The abdominal aorta is normal in course and caliber noting minimal atherosclerotic plaque. No dissection is seen. The abdominal aorta and iliac arteries are widely patent bilaterally. Major branches of the abdominal aorta: The celiac trunk, superior mesenteric, and inferior mesenteric arteries are widely patent. There is a replaced hepatic artery which arises from the superior mesenteric artery. The splenic vein is patent. There are 2 renal arteries seen bilaterally. These are widely patent. Stomach and bowel: There is mild colonic diverticulosis without CT evidence of acute diverticulitis. Duodenal diverticula are incidentally noted. There is a thick-walled and hyperemic loop of distal ileum in the right lower quadrant seen on image #304. The small bowel loops proximal to this loop are distended and fluid-filled, measuring up to 3.1 cm diameter. This is consistent with a small bowel obstruction. The distal small bowel and colon are decompressed. The transition point is seen on image #314. Interloop fluid is noted. There is no pneumatosis intestinalis or portal venous gas. The appendix is well-visualized and normal. Peritoneum: There is trace pelvic ascites. No intraperitoneal free air is identified. Lymphadenopathy: There are mildly enlarged and hyperemic mesenteric lymph nodes in the right lower quadrant. The largest is seen on image #308 and measures 2.2 x 2.0 cm. Pelvic viscera: The bladder, prostate, and seminal vesicles are normal as imaged. Skeletal structures: There are bilateral pars defects at L5. Mild to moderate lumbosacral spondylosis is observed. A large hemangioma seen in the body of L5. No destructive bony lesions are seen. IMPRESSION: 1. Unremarkable CT angiogram of the thoracic aorta. 2. There is no airspace consolidation or pleural effusion. 3. Mild cardiomegaly with advanced coronary artery calcification. 4. Unremarkable CT angiogram of the abdominal aorta and its major branches. 5. There is a focally thick walled and hyperemic loop of distal ileum the right lower quadrant. This likely represents a nonspecific enteritis. A stricture or mass lesion are differential considerations. 6. This thick-walled loop causes upstream small bowel obstruction. 7. Interloop fluid is noted. No pneumatosis intestinalis, portal venous gas, or intraperitoneal free air is identified. 8. There are enlarged and hyperemic mesenteric lymph nodes in the right lower quadrant. These may be reactive but are larger than expected. A 2-3 month follow-up abdominal CT is recommended for reassessment. 9. Hepatomegaly and hepatic steatosis. 10. Splenomegaly. 11. Colonic diverticulosis without CT evidence of acute diverticulitis. 12. Additional findings as above. ACT 112: Positive. There are findings on this exam that require communication between the performing entity and the patient following Patient Test Result Information Act ([place] Act 112) guidelines. Electronically signed by: Roberto Mata M.D. 05/01/2021 5:15 PM Hospital Course (1) Small bowel obstruction: The patient presented to [facility] with SBO 2nd to ileum disease as seen on admission CT. SBO was likely due to Crohn's disease involvement of the ileum. Patient has presumed Crohn's disease diagnosed 10/2020 in [place], [place]. Placed on mesalamine at that time. Path reports dated 10/2020 that were obtained from his supervisor final in [place], [place] showed terminal ileum biopsies demonstrating inflammation with ulcera tion. Mr Wesley SBO was treated in customary fashion with NG tube decompression, IV fluids, IV pain meds/anti-emetics, and ultimately IV solumedrol. He was seen in consult by gastroenterology, Dr Claus Echeverria, who felt that his presumed Crohn's disease was indeed the cause of his SBO. He recommended the IV steroids followed by oral prednisone at time of discharge. The patient improved within a short period of time following institution of IV steroids. He began to have bowel movements with flatus on hospital day #3. On hospital day #4 the NG tube was removed and he was started on a clear liquid diet. He tolerated clears without any GI symptoms or abdominal pain. On hospital day #5 (day of discharge) his diet was advanced to full liquids and he continued to tolerate this. He had additional passage of stool prior to leaving. Abdomen was soft & nondistended. On day of discharge the patient was given a prescription for prednisone and instructed to take 40mg/day starting 05/06/21. He likely will need a prolonged taper of prednisone; will defer such to his primary supervisor final in the [place], [place] region. Finally, he was advised to continue on a full liquid diet for another 24-hours post-discharge, then gradually introduce low-fiber foods into the diet thereafter. He should follow a low-fiber diet for about 1 week upon return home. (2) Crohn's disease involving terminal ileum: Suspected Crohn's, diagnosed 10/2020 in [place] ([place], [place]. Path report from bx of terminal ileum during 10/2020 colonoscopy with inflammation & ulceration. Seen by Om[facility] FOURNIER, Dr Claus Echeverria, during this stay. IV steroids advised, and with such his SBO resolved. He will take oral prednisone starting the day after discharge. Patient has follow-up with his PCP as well as GI specialist, Dr Justin Valdivia, on 05/07/21 in [place], [place]. He was given a CD ROM copy of his CT scans to take back with him to [place]. (3) Lymphadenopathy, abdominal: Enlarged and hyperemic mesenteric lymph nodes as seen on CT. Present in RLQ. Likely reactive to the suspected Crohn's. Given the hepatomegaly and splenomegaly, however, he will need repeat imaging upon return to [place]. Defer the timing of this to his PCP and GI physicians. Would need to ensure no malignancy or other pathology but felt to be unlikely. (4) GERD (gastroesophageal reflux disease): Resume low-dose PPI at discharge. (5) HTN (hypertension): High, and labile, throughout the stay. Possibly worsened by use of IV steroids. At discharge he will resume atenolol 25mg BID. (6) Hepatomegaly: Hepatomegaly/hepatic steatosis/splenomegaly- as seen on CT this admission. primary liver disease? autoimmune? malignancy (given the intra-abdominal lymph nodes)? other? will need close f/u in [place] following this admission. (7) Hepatic steatosis: See above (8) Splenomegaly: etiology? see above. (9) History of DVT of lower extremity: Right leg, history of. While patient was NPO for his SBO he received a therapeutic heparin drip. This was stopped the AM of discharge, and he was resumed on his oral Xarelto at that time. (10) Epistaxis: Transient. 2nd to NG tube irritation on the nose. resolved, did not recur. (11) Abnormal EKG: EKG at time of ER presentation showed LVH and inferior ST changes. He never had chest pain or other ischemic symptoms at time of admission. CTA chest did show heavy calcification of his coronary arteries. I recommended to him that he f/u with his PCP back home in [place] to address this. He potentially may need a stress test. Copies of his 2 EKGs were given to him at discharge. Total Time Total Time Spent Total Time Spent (In Minutes): 45 Total Time Includes: Examination of the Patient, Discharge Planning, Medication Reconciliation and Communication With Other Providers (GI) Discharge Plan Discharge Items Patient Disposition: Home - Self-Care Reason For Visit: SBO (Small Bowel Obstruction/Bowel Blockage) Discharge Diagnosis: 1. SBO due to Crohn's Disease affecting the ileum (last portion of the small intestine) - improved with NG tube and IV steroids. 2. Enlarged liver and spleen on CAT scan - follow-up needed. 3. Enlarged lymph nodes in the abdomen - follow-up needed. 4. Mildly abnormal EKG and calcification of the coronary arteries on CAT scan - follow-up needed. Activity: Resume your previous activity Non-emergency contact: Primary Care Provider and [employer] Call non-emergency contact if: you have any medication questions, your symptoms worsen and you have a fever Follow-up/Referrals: Ernesto Serna [Other] (see your family doctor within 1 week ) Justin Valdivia MD [Other] - 05/07/21 Diet: Full liquid, Low Fiber and Lactose Intolerant Addtl Attending Provider Instructions: Mr Wilkerson, You were hospitalized at [facility] due to a small bowel obstruction. This intestinal blockage was due to inflammation in the last portion of your small intestine called the "ileum." The ileum is often inflamed and sick in Crohn's disease. You were diagnosed with suspected Crohn's disease earlier this year in [place]. An NG tube was placed for your bowel obstruction. Dr Claus Echeverria from [facility] saw you in consult and recommended IV steroids for the sick ileum from Crohn's. With time and steroids your bowels started to open up - you passed multiple stools and gas. Your abdominal bloating resolved. Ultimately the NG tube was removed and we started you on clear liquids. You tolerated this without any nausea or vomiting. Your lab studies remained stable/normal during your stay. Dr Echeverria recommends the following: Initiation of an oral prednisone taper for the Crohn's disease - * starting 05/06/21 take 40mg (four 10mg tablets) once daily with food * this will be tapered over several weeks * further instructions and guidance for the prednisone should come from your supervisor final in [place] With respect to diet - * Today, 05/05/21 - full liquids (this includes dairy products such as yogurt, ice cream, and cream-based soups; water; juices; clear soda; jello; chicken broth; Turkish Ice; etc * Tomorrow, 05/06/21, you may start a low-fiber diet -- see handout * gradually increase the number of low-fiber foods into your diet over the next few days * stay on the low-fiber diet for about 10 days * avoid alcohol, excessive amounts of caffeinated beverages (coffee, soda, tea), and fast food/fried foods As we talked about we saw several other abnormalities while here including - 1. enlarged liver and spleen as seen on CAT scan - please have your GI and family doctor look into this more 2. enlarged lymph nodes in the abdomen (right side on the CAT scan) - likely due to the Crohn's disease itself, but follow-up is needed 3. mildly abnormal EKG along with the CAT scan of the lungs showing calcification of your coronary arteries (which is a marker of atherosclerosis of the coronary vessels) - please talk to your family doctor about this; you may need more heart testing Follow-up - see separate section As you travel back to [place] be sure to take frequent breaks to get out of the car and stretch. Do this about every 1 hour. Return to any hospital if -- * you develop fevers over 100 degrees * you have worsening abdominal pain * you have worsening abdominal bloating * you have recurrent nausea with vomiting * you are short of breath * any other concerns It was our pleasure caring for you at [facility]! Please feel better and stay well, -Dr Castro Pending Studies at Discharge: No Stand-Alone Forms: My [facility], Smoking Cessation Medications and DC Order Prescriptions: New prednisone 10 mg tablet 10 mg PO .as directed Qty: 60 RF: 0 Continued atenolol 25 mg tablet 25 mg PO BID RF: 0 Nexium 24HR 20 mg Tablet,Delayed Release (Dr/Ec) 20 mg PO QAM RF: 0 Xarelto 20 mg tablet 20 mg PO QAM RF: 0 acetaminophen [Tylenol Extra Strength] 500 mg Tablet 1,000 mg PO Q6H PRN (Reason: Pain) RF: 0 Discharge Orders: Discharge Order (Routine); Ordered 05/05/21 Ordered By: Wayne Meza/Other Patient Handouts: Small Bowel Obstruction, Low-Fiber Diet, What Is Crohn's Disease, Full Liquid Diet Dc Admission Data Admit Date/Time: 05/01/21 20:43 Attending Provider: Wayne Castro Admit Provider: Carlitos Abernathy Other Providers: Carlitos Abernathy ; Claus Echeverria Other Interventions: Discharge Summary Assessment (RN) Last Done: 05/05/21 13:35 Coding Level of Care Code None Diagnoses Small bowel obstruction K56.609 Crohn's disease involving terminal ileum K50.00 Lymphadenopathy, abdominal R59.0 GERD (gastroesophageal reflux disease) K21.9 HTN (hypertension) I10 Hypertension type: unspecified Hepatomegaly R16.0 Hepatic steatosis K76.0 Splenomegaly R16.1 History of DVT of lower extremity Z86.718 Epistaxis R04.0 Abnormal EKG R94.31 Comment see "PG E/M" entry dated 05/06/21 for discharge code.
--- NOTE | 2021-05-05 15:34 | Gastroenterology Progress Note ---
Date of Service May 05, 2021 Assessment & Plan (1) Crohn's disease involving terminal ileum: (2) Small bowel obstruction: Plan is for discharge today with 8 week Prednisone taper starting at 40 mg by mouth daily for 1 week and decreasing by 5 mg weekly He is scheduled to follow with his home Sales Operations Manager on I informed him that Prednisone is not a maintenance medication for Crohn's disease, and therefore he will need close followup with his home GI team If he has any abdominal pain, abdominal distention, or other complaints, he should present to the first available ER for further evaluation Thanks for allowing me to participate in the care of this patient, if you have any further questions, please do not hesitate in contacting me. Admission and Anticipated Discharge Date Admission Date: May 01, 2021 Subjective Doing much better today. Had another BM overnight. Tolerating PO intake. NG tube is out without further nasuea, vomiting, or abdominal pain. No further complaints at present. Review of Systems Review of Systems: All systems reviewed & are unremarkable except as noted in HPI & below Physical Exam Constitutional: + obese; no acute distress and not ill appearing Respiratory: normal respiratory effort; no respiratory distress and no labored breathing Cardiovascular: RRR, no murmur, no edema Gastrointestinal (Abdomen): normal bowel sounds, soft, nontender, no hepatosplenomegaly Skin: no rashes, warm and dry Psychiatric: A+Ox3, euthymic affect Results & Data Results & Data ([facility]) Vital Signs (Past 12 Hours) Vital Signs Temp Pulse Pulse Resp BP BP BP 05/05/21 13:35 36.7 C 88 16 159/99 H 156/99 H 05/05/21 12:49 88 159/99 H 05/05/21 12:44 88 159/99 H 05/05/21 11:00 98 H 156/99 H 05/05/21 08:41 80 165/105 H 05/05/21 08:08 36.7 C 81 16 165/105 H 05/05/21 03:52 86 160/100 H Pulse Ox 05/05/21 13:35 96 05/05/21 12:49 05/05/21 12:44 05/05/21 11:00 96 05/05/21 08:41 05/05/21 08:08 95 05/05/21 03:52 PG Care Time/CCT Total # of Minutes Spent Total Time Spent with Patient: Total time spent is greater than 50% in coordination of care (as documented) at patient's floor/unit and/or counseling patient: Coding Level of Care Code 80052 Subseq Hosp Care Lv 3 Diagnoses Crohn's disease involving terminal ileum K50.00 Small bowel obstruction K56.609
--- NOTE | 2021-05-06 23:29 | Billing Data ---
Date of Service May 05, 2021 Coding Level of Care Code D/C Day Management >30 mins
== END 2021-05-05 14:26 | disposition home or self-care (01) | DRG 387 ==
LOC: ED 16:13 → 2N 20:43 → SUATTDRO 20:43 → 2N 22:06 → 3N 05-03 13:08